=== PATIENT | female | born 1990 | race Caucasian/White ===

== ENCOUNTER 2016-11-06 17:44 | Emergency (ER) | payer SELFPAY | END 2016-11-06 17:45 | disposition left against medical advice (07) | LOC: ER 17:44 | DX: Z53.21 Procedure and treatment not carried out due to patient leaving prior to being seen by health care provider (principal) ==

== ENCOUNTER 2017-05-13 21:31 | Emergency (ER) | payer SELFPAY ==
--- NOTE | 2017-05-13 23:06 | RADIOLOGY REPORT (SQ) ---
EXAM DESCRIPTION: CHEST PA/LAT COMPLETED DATE/TIME: 05/13/2017 10:47 pm REASON FOR STUDY: rib pain COMPARISON: May 2016 EXAM PARAMETERS: NUMBER OF VIEWS: two views TECHNIQUE: Digital Frontal and Lateral radiographic views of the chest acquired. RADIATION DOSE: NA LIMITATIONS: none FINDINGS: LUNGS AND PLEURA: No opacities, masses or pneumothorax. No pleural effusion. MEDIASTINUM AND HILAR STRUCTURES: No masses or contour abnormalities. HEART AND VASCULAR STRUCTURES: Heart normal size. No evidence for failure. BONES: No acute findings. HARDWARE: None in the chest. OTHER: No other significant finding. IMPRESSION: NO SIGNIFICANT RADIOGRAPHIC FINDING IN THE CHEST. TECHNICAL DOCUMENTATION: JOB ID: [id number] [employer]- All Rights Reserved
[2017-05-13] MEDS ORDERED: IBUPROFEN 600 MG TABLET PO ONE (23:43)
--- NOTE | 2017-05-13 23:43 | ER Document Report ---
ED General - General Chief Complaint: Rib, chest pain Stated Complaint: RIB PAIN Time Seen by Provider: 05/13/17 23:41 Notes: The patient is a 27-year-old female, PMHx migraines, seizures, current smoker, who presents with 1 day of bilateral lateral chest wall pain that is worse when she coughs or presses on her chest wall. She has not had this in the past not taking anything to help. She denies hemoptysis, OCP use, recent travel, nausea , vomiting, shortness of breath, chest pain at rest, abdominal pain or urinary symptoms. TRAVEL OUTSIDE OF THE [place] IN LAST 30 DAYS: No - Related Data Allergies/Adverse Reactions: No Known Allergies Allergy (Verified 05/09/15 00:27) Past Medical History - General Information source: Patient - Social History Smoking Status: Current Every Day Smoker Family History: Reviewed & Not Pertinent Neurological Medical History: Reports: Hx Migraine, Hx Seizures Renal/ Medical History: Denies: Hx Peritoneal Dialysis Psychiatric Medical History: Reports: Hx Anxiety, Hx Depression Past Surgical History: Reports: Hx Section - x3 - Immunizations Immunizations up to date: Yes Hx Diphtheria, Pertussis, Tetanus Vaccination: Yes Review of Systems - Review of Systems Notes: REVIEW OF SYSTEMS: CONSTITUTIONAL: -fevers, -chills EENT: -eye pain, -difficulty swallowing, -nasal congestion CARDIOVASCULAR: +chest wall pain, -syncope. RESPIRATORY: +cough, -SOB GASTROINTESTINAL: -abdominal pain, - nausea, -vomiting, -diarrhea GENITOURINARY: -dysuria, -hematuria MUSCULOSKELETAL: -back pain, -neck pain SKIN: -rash or skin lesions. HEMATOLOGIC: -easy bruising or bleeding. LYMPHATIC: -swollen, enlarged glands. NEUROLOGICAL: -altered mental status or loss of consciousness, -headache, - neurologic symptoms PSYCHIATRIC: -anxiety, -depression. ALL OTHER SYSTEMS REVIEWED AND NEGATIVE. Physical Exam - Vital signs Vitals: Temp Pulse Resp BP Pulse Ox 98.8 F 104 H 20 117/79 100 05/13/17 23:07 05/13/17 23:07 05/13/17 23:07 05/13/17 23:07 05/13/17 23:07 - Notes Notes: PHYSICAL EXAMINATION: GENERAL: Well-appearing, well-nourished and in no acute distress. HEAD: Atraumatic, normocephalic. EYES: Pupils equal round and reactive to light, extraocular movements intact, sclera anicteric, conjunctiva are normal. ENT: nares patent, oropharynx clear without exudates. Moist mucous membranes. NECK: Normal range of motion, supple without lymphadenopathy LUNGS: Breath sounds clear to auscultation bilaterally and equal. No wheezes rales or rhonchi. HEART: Tachycardic CHEST WALL: Tenderness over B/L lateral chest wall, no step-offs ABDOMEN: Soft, nontender, normoactive bowel sounds. No guarding, no rebound. No masses appreciated. EXTREMITIES: Normal range of motion, no pitting or edema. No cyanosis. NEUROLOGICAL: Cranial nerves grossly intact. Normal speech, normal gait. Normal sensory and motor exams. PSYCH: Normal mood, normal affect. SKIN: Warm, Dry, normal turgor, no rashes or lesions noted. Course - Re-evaluation Re-evalutation: Patient appears well and is in no respiratory distress. Her chest x-ray does not show any rib fractures, pneumothorax or pneumonia and her EKG does not show any evidence of ischemia. She is mildly tachycardic that she says is from her pain when she coughs. She has no risk factors for PE at this time and does not have any shortness of breath. Will begin anti-inflammatories and provide smoking cessation counseling to the patient. Given strict return precautions and she understands. - Vital Signs Vital signs: Temp Pulse Resp BP Pulse Ox 99.9 F 100 20 115/80 99 05/14/17 00:15 05/13/17 23:54 05/13/17 23:54 05/13/17 23:54 05/13/17 23:54 - Diagnostic Test Radiology reviewed: Image reviewed, Reports reviewed Radiology results interpreted by me: CXR: NAD - EKG Interpretation by Me EKG shows normal: Sinus rhythm, [place], Intervals, QRS Complexes, ST-T Waves Rate: Tachycardia Discharge - Discharge Clinical Impression: Chest wall pain Condition: Stable Disposition: HOME, SELF-CARE Additional Instructions: CHEST PAIN OF UNCLEAR CAUSE: The exact cause of your chest pain isn't clear. Fortunately, there is no evidence of a dangerous medical condition. Further testing may be required to find the source of the pain. Most often, we find that this pain is coming from the chest wall -- the muscles or rib joints in the chest. But chest pain can come from the lung and lung lining, the esophagus, the heart valves or heart lining, and even the stomach or gallbladder. Rest. Eat lightly until the pain is gone. We may prescribe medicine for pain and inflammation. You should call the physician immediately if the pain radiates to the shoulder, jaw or arms; if you start to run a fever or develop a cough; or if you develop shortness of breath, or other new or alarming symptoms. NORMAL EXAM AND WORKUP: At this time, your examination and workup show no significant abnormality. No significant abnormal physical findings were noted. All laboratory, EKG, and imaging (x-ray, CT scans, ultrasound) studies that were ordered show no significant abnormality. Although your examination and all studies that were ordered showed no significant abnormal finding, there are no examinations and no studies that are 100% accurate. There is always the possibility that some abnormality could exist and not be detected with physical examination or within the limits and capabilities of laboratory and other studies. You should return or follow up as you were instructed on your visit today for further evaluation if your symptoms do not resolve. CHEST WALL PAIN: Your chest pain may be coming from the chest wall. This is often caused by straining the muscles or joints in the chest during physical activity, direct trauma, coughing, or vigorous vomiting. Persons with arthritis are especially prone to this type of pain, due to inflammation of the cartilage joints near the breast bone. Occasionally, no cause can be found. Rest from strenuous physical activity. This kind of chest pain is usually made worse by movement of the chest. Depending on the symptoms, we may prescribe medicine for pain, muscle relaxation, and antiinflammatory effects. If the pain is new, and seems to be due to muscle strain, cold packs can help. Otherwise, apply gentle warmth to the painful area for 15 minutes every hour or two. You should call contact the doctor immediately if things change. Further evaluation is needed if you develop a fever or cough, if the nature of the pain changes, or if you become short of breath. FOLLOW-UP CARE: If you have been referred to a physician for follow-up care, call the physician s office for an appointment as you were instructed or within the next two days. If you experience worsening or a significant change in your symptoms, notify the physician immediately or return to the Emergency Department at any time for re-evaluation. Forms: Smoking Cessation Education
[2017-05-14 00:01] VITALS: BP 115/80
--- NOTE | 2017-05-14 07:59 | EKG REPORT ---
SEVERITY:- BORDERLINE ECG - SINUS TACHYCARDIA BORDERLINE T ABNORMALITIES, INFERIOR LEADS : Confirmed by: Pool Ortiz MD 14-May-2017 07:58:46
== END 2017-05-14 01:18 | disposition home or self-care (01) ==
LOC: ER 21:31
DX: R07.89 Other chest pain (principal); R07.81 Pleurodynia; F17.200 Nicotine dependence, unspecified, uncomplicated
CPT/HCPCS: 71020; 93005; 93010; 99283

== ENCOUNTER 2017-05-15 19:39 | Emergency (ER) | payer SELFPAY ==
[2017-05-15 20:04] VITALS: BP 110/69
[2017-05-15] MEDS ORDERED: ONDANSETRON 4 MG TAB.RAPDIS PO ONE (20:33)
[2017-05-15] MEDS ORDERED: OXYCODONE-ACETAMINOPHEN 5-325 MG TABLET PO ONE (20:34)
--- NOTE | 2017-05-15 20:49 | ER Document Report ---
ED Medical Screen (RME) - General Chief Complaint: Abdominal Pain Stated Complaint: FLANK PAIN Time Seen by Provider: 05/15/17 20:27 Notes: patient is a female who presents to the ED stating she recently found out she was the past two days and last night had sudden onset of pelvic pain, urinary frequnecy, urgency, pain and hematuria only when she wipes , denies any vaginal spotting/bleeding. she has not seen an OBGYN regarding todays concern, denies US confirming . New to [place] so does not have an established PCP, OBGYN TRAVEL OUTSIDE OF THE [place]. IN LAST 30 DAYS: No - Related Data Allergies/Adverse Reactions: No Known Allergies Allergy (Verified 05/09/15 00:27) Past Medical History - Social History Drug Abuse: None Family history: Malignancy - BREAST CANCER IN GRANDMOTHER AND GREATGRANDMOTHER AND MOTHERS AUNT Neurological Medical History: Reports: Hx Migraine, Hx Seizures Renal/ Medical History: Denies: Hx Peritoneal Dialysis Psychiatric Medical History: Reports: Hx Anxiety, Hx Depression Past Surgical History: Reports: Hx Section - x3 - Immunizations Immunizations up to date: Yes Hx Diphtheria, Pertussis, Tetanus Vaccination: Yes Physical Exam - Vital signs Vitals: Temp Pulse Resp BP Pulse Ox 97.9 F 86 16 110/69 95 05/15/17 20:02 05/15/17 20:02 05/15/17 20:02 05/15/17 20:02 05/15/17 20:02 - General General appearance: Appears well, Alert In distress: None - Abdominal Inspection: Normal Distension: No distension Bowel sounds: Normal Tenderness: Nontender Organomegaly: No organomegaly Course - Vital Signs Vital signs: Temp Pulse Resp BP Pulse Ox 97.9 F 86 16 110/69 95 05/15/17 20:02 05/15/17 20:02 05/15/17 20:02 05/15/17 20:02 05/15/17 20:02
[2017-05-15 21:57] LABS: ABSOLUTE EOSINOPHILS # (AUTO) 0.1 10^3/uL (0.0-0.6); ABSOLUTE LYMPHOCYTES (AUTO) 1.8 10^3/uL (0.5-4.7); ABSOLUTE MONOCYTES (AUTO) 1.3 10^3/uL (0.1-1.4); ABSOLUTE NEUT (AUTO) 9.5 10^3/uL (1.7-8.2); BASOPHILS % (AUTO) 0.2 % (0-2); HEMATOCRIT 40.2 % (36.0-47.0); HEMOGLOBIN 13.7 g/dL (12.0-15.5); HGB HCT DIFFERENCE 0.9; LYMPHOCYTES % (AUTO) 14.4 % (13-45); MEAN CORPUSCULAR HEMOGLOBIN 31.5 pg (27.0-33.4); MEAN CORPUSCULAR HGB CONC 34.2 g/dL (32.0-36.0); MEAN CORPUSCULAR VOLUME 92 fl (80-97); RED BLOOD COUNT 4.36 10^6/uL (3.72-5.28); RED CELL DISTRIBUTION WIDTH 13.2 % (11.5-14.0); SEGMENTED NEUTROPHILS % (AUTO) 74.4 % (42-78); WHITE BLOOD COUNT 12.8 10^3/uL (4.0-10.5)
[2017-05-15 22:00] LABS: APPEARANCE,URINE SLIGHTLY-CLOUDY; BILIRUBIN,URINE NEGATIVE (NEGATIVE); GLUCOSE, URINE NEGATIVE (NEGATIVE); KETONES,URINE NEGATIVE (NEGATIVE); LEUKOCYTE ESTERASE,URINE SMALL (NEGATIVE); NITRITE,URINE NEGATIVE (NEGATIVE); PROTEIN,URINE NEGATIVE (NEGATIVE); URINE SPECIFIC GRAVITY 1.019; UROBILINOGEN,URINE NEGATIVE mg/dL (<2.0)
--- NOTE | 2017-05-15 22:13 | ER Document Report ---
ED GI/ - General Mode of Arrival: Ambulatory Information source: Patient TRAVEL OUTSIDE OF THE [place] IN LAST 30 DAYS: No - HPI Patient complains to provider of: Abdominal pain Onset: Other - Refer to HPI notes Similar symptoms previously: No Recently seen / treated by doctor: No <JAMILAH WANG - Last Filed: 05/16/17 05:48> <CARLOS ENRIQUEKRISTAL ANN - Last Filed: 05/16/17 05:56> - General Chief Complaint: Abdominal Pain Stated Complaint: FLANK PAIN Time Seen by Provider: 05/15/17 20:27 Notes: Patient is a 27 year old female presenting to the emergency department for right sided pain that radiates into her back. Patient states her pain is exacerbated with movement and deep breaths. Patient has also had some nausea and vomiting. Patient denies any urinary symptoms such as frequency or burning with urination however, patient's triage note states she did have frequency and burning with urination. Patient was evaluated on Saturday and had a normal x- ray. Patient states she found out she was 2 days ago. Patient does not have an established PCP or OBGYN since she is new to [facility]. Patient has no known drug allergies. (JAMILAH WANG) - Related Data Allergies/Adverse Reactions: No Known Allergies Allergy (Verified 05/09/15 00:27) Past Medical History - General Information source: Patient - Social History Smoking Status: Unknown if Ever Smoked Drug Abuse: None Family History: None Patient has suicidal ideation: No Patient has homicidal ideation: No Neurological Medical History: Reports: Hx Migraine, Hx Seizures Psychiatric Medical History: Reports: Hx Anxiety, Hx Depression Past Surgical History: Reports: Hx Section - x3 - Immunizations Immunizations up to date: Yes Hx Diphtheria, Pertussis, Tetanus Vaccination: Yes <JAMILAH WANG - Last Filed: 05/16/17 05:48> Review of Systems - Review of Systems Constitutional: No symptoms reported EENT: No symptoms reported Cardiovascular: No symptoms reported Respiratory: No symptoms reported Gastrointestinal: See HPI, Abdominal pain, Nausea, Vomiting Genitourinary: No symptoms reported Female Genitourinary: No symptoms reported Musculoskeletal: See HPI, Back pain Skin: No symptoms reported Hematologic/Lymphatic: No symptoms reported Neurological/Psychological: No symptoms reported -: Yes All other systems reviewed and negative <JAMILAH WANG - Last Filed: 05/16/17 05:48> Physical Exam - Vital signs Interpretation: Normal <JAMILAH WANG - Last Filed: 05/16/17 05:48> <KRISTAL MONACO - Last Filed: 05/16/17 05:56> - Vital signs Vitals: Temp Pulse Resp BP Pulse Ox 97.9 F 86 16 110/69 95 05/15/17 20:02 05/15/17 20:02 05/15/17 20:02 05/15/17 20:02 05/15/17 20:02 - Notes Notes: GENERAL: Alert, interacts well. No acute distress. HEAD: Normocephalic, atraumatic. EYES: Appear normal. Pupils equal, round, and reactive to light. ENT: Moist mucus membranes, tongue midline. NECK: Full range of motion. Supple. Trachea midline. LUNGS: Clear to auscultation bilaterally, no wheezes, rales, or rhonchi. No respiratory distress. Right lateral chest wall tenderness to palpation. HEART: Regular rate and rhythm. No murmurs, gallops, or rubs. ABDOMEN: Soft, non-tender. Non-distended. Normal bowel sounds. BACK: Right CVA tenderness to palpation. EXTREMITIES: Moves all 4 extremities spontaneously. Normal strength. No edema. NEUROLOGICAL: Alert and oriented x3. Normal speech. No focal neurological deficits. GSC 15. PSYCH: Normal affect, normal mood. SKIN: Warm, dry, normal turgor. No rashes or lesions noted. (JAMILAH WANG) Course - Laboratory Result Diagrams: 05/15/17 20:32 05/15/17 20:32 <JAMILAH WANG - Last Filed: 05/16/17 05:48> - Laboratory Result Diagrams: 05/15/17 20:32 05/15/17 20:32 <KRISTAL MONACO - Last Filed: 05/16/17 05:56> - Re-evaluation Re-evalutation: 05/16/17 Patient with UTI and urine. Also some chest wall tenderness to palpation is reproducible on the right. US discussed with radiologist and no acute findings. Patient will be started on Keflex. Urine culture sent. Follow-up with [facility] this week. Understands agrees with plan. Stable for discharge. (KRISTAL MONACO) - Vital Signs Vital signs: Temp Pulse Resp BP Pulse Ox 97.9 F 86 16 110/69 95 05/15/17 20:02 05/15/17 20:02 05/15/17 20:02 05/15/17 20:02 05/15/17 20:02 - Laboratory Laboratory results interpreted by me: 05/15/17 05/15/17 20:32 21:36 WBC 12.8 H Absolute Neutrophils 9.5 H Urine Blood SMALL H Ur Leukocyte Esterase SMALL H Discharge <JAMILAH WANG - Last Filed: 05/16/17 05:48> <KRISTAL MONACO - Last Filed: 05/16/17 05:56> - Discharge Clinical Impression: Chest wall pain UTI (urinary tract infection) Qualifiers: Urinary tract infection type: site unspecified Hematuria presence: without hematuria Qualified Code(s): N39.0 - Urinary tract infection, site not specified Condition: Stable Disposition: HOME, SELF-CARE Instructions: Urinary Tract Infection ([facility]) Additional Instructions: Please take Tylenol as needed for pain. Follow-up with your [facility] this week. Prescriptions: Cephalexin Monohydrate [Keflex 500 mg Capsule] 500 mg PO Q6H 10 Days capsule Referrals: EH LOVING MD [Primary Care Provider] - Follow up as needed Scribe Attestation: 05/16/17 05:56 I personally performed the services described in the documentation, reviewed and edited the documentation which was dictated to the scribe in my presence, and it accurately records my words and actions. (KRISTAL MONACO) Scribe Documentation - Scribe Written by Ashleigh:: Ashleigh Kerr 05/15/17 23:56 acting as scribe for :: Carlos Enrique <JAMILAH WANG - Last Filed: 05/16/17 05:48>
[2017-05-15 22:15] LABS: ALANINE AMINOTRANSFERASE 49 U/L (9-52); ALBUMIN 4.3 g/dL (3.5-5.0); ALKALINE PHOSPHATASE 80 U/L (38-126); ANION GAP 12 (5-19); ASPARTATE AMINO TRANSFERASE 23 U/L (14-36); BILIRUBIN,DIRECT 0.4 mg/dL (0.0-0.4); BILIRUBIN,TOTAL 0.5 mg/dL (0.2-1.3); BLOOD UREA NITROGEN 14 mg/dL (7-20); CALCIUM 9.9 mg/dL (8.4-10.2); CARBON DIOXIDE 25 mmol/L (22-30); CHLORIDE 103 mmol/L (98-107); CREATININE RESULT 0.69 mg/dL (0.52-1.25); GLUCOSE 100 mg/dL (75-110); LIPASE 29.7 U/L (23-300); POTASSIUM 4.6 mmol/L (3.6-5.0); SODIUM 139.6 mmol/L (137-145); TOTAL PROTEIN 7.5 g/dL (6.3-8.2)
[2017-05-15] MEDS ORDERED: CEFTRIAXONE 1 GM/D5W RTU 50 ML IV ONE (22:28)
[2017-05-15] MEDS ORDERED: CEFTRIAXONE INJ 1000 MG VIAL IM ONE (22:30)
[2017-05-15] MEDS ORDERED: LIDOCAINE 1% INJ-PF (10 MG/ML) 30 ML SDV INFIL ONE (22:30)
--- NOTE | 2017-05-17 16:22 | RADIOLOGY REPORT (SQ) ---
EXAM DESCRIPTION: U/S ABDOMEN LTD W/DOPPLER COMPLETED DATE/TIME: 05/15/2017 9:10 pm REASON FOR STUDY: RUQ pain, r/o GB disease COMPARISON: None. TECHNIQUE: Dynamic and static grayscale images acquired of the abdomen and recorded on PACS. Additio nal selected color Doppler and spectral images recorded. LIMITATIONS: None. FINDINGS: PANCREAS: No masses. Visualized pancreatic duct normal caliber. LIVER: No masses. Echotexture normal. LIVER VASCULATURE: Normal directional flow of the main portal vein and hepatic veins. GALLBLADDER: No stones. Normal wall thickness. No pericholecystic fluid. ULTRASOUND-DETECTED RAUSCH'S SIGN: Negative. INTRAHEPATIC DUCTS AND COMMON DUCT: CBD and intrahepatic ducts normal caliber. No filling defects. INFERIOR VENA CAVA: Normal flow. AORTA: No aneurysm. RIGHT KIDNEY: Normal size. Normal echogenicity. No solid or suspicious masses. No hydronephrosis. No calcifications. PERITONEAL AND RIGHT PLEURAL SPACE: No ascites or effusions. OTHER: No other significant findings. IMPRESSION: NORMAL RIGHT UPPER QUADRANT ULTRASOUND. TECHNICAL DOCUMENTATION: JOB ID: [id number]- All Rights Reserved
== END 2017-05-15 23:59 | disposition home or self-care (01) ==
LOC: ER 19:39
DX: R07.89 Other chest pain (principal); N39.0 Urinary tract infection, site not specified
CPT/HCPCS: 99284; 96372; 36415; 87086; 83690; 85025; 81025; 80053; 81001; 76705; 93976; S0119; J3490; J0696

== ENCOUNTER 2017-07-02 12:16 | Emergency (ER) | payer SELFPAY ==
--- NOTE | 2017-07-02 13:12 | ER Document Report ---
ED Medical Screen (RME) - General Chief Complaint: Vag Bleeding, +preg <12wks Stated Complaint: ABDOMINAL PAIN,VAGINAL BLEEDING Time Seen by Provider: 07/02/17 13:09 Notes: Patient has had a positive home test about 2 weeks ago when she started having vaginal bleeding and lower abdominal pain last night. Patient had a tubal ligation 6 years ago. G3, P3, A0. Patient says her mother says she is looked and patient has noticed her abdomen getting bigger. She has not had any bleeding or spotting until last night. She says it is heavy including clots. Patient says she had a regular menstrual period in March. She had no period in April. She had a one-day light. The first part of May and none since then. TRAVEL OUTSIDE OF THE [place]S. IN LAST 30 DAYS: No - Related Data Allergies/Adverse Reactions: No Known Allergies Allergy (Verified 07/02/17 12:20) Past Medical History - Social History Frequency of alcohol use: None Drug Abuse: None Family history: Malignancy - BREAST CANCER IN GRANDMOTHER AND GREATGRANDMOTHER AND MOTHERS AUNT Neurological Medical History: Reports: Hx Migraine, Hx Seizures Renal/ Medical History: Denies: Hx Peritoneal Dialysis Psychiatric Medical History: Reports: Hx Anxiety, Hx Depression Past Surgical History: Reports: Hx Section - x3 - Immunizations Immunizations up to date: Yes Hx Diphtheria, Pertussis, Tetanus Vaccination: Yes Physical Exam - Vital signs Vitals: Temp Pulse Resp BP Pulse Ox 97.8 F 82 24 H 112/69 98 07/02/17 12:22 07/02/17 12:22 07/02/17 12:22 07/02/17 12:22 07/02/17 12:22 Course - Vital Signs Vital signs: Temp Pulse Resp BP Pulse Ox 97.8 F 82 24 H 112/69 98 07/02/17 12:22 07/02/17 12:22 07/02/17 12:22 07/02/17 12:22 07/02/17 12:22
[2017-07-02 13:36] LABS: ABSOLUTE BASOPHILS # (AUTO) 0.1 10^3/uL (0.0-0.2); ABSOLUTE EOSINOPHILS # (AUTO) 0.2 10^3/uL (0.0-0.6); ABSOLUTE LYMPHOCYTES (AUTO) 2.6 10^3/uL (0.5-4.7); ABSOLUTE MONOCYTES (AUTO) 0.6 10^3/uL (0.1-1.4); ABSOLUTE NEUT (AUTO) 7.1 10^3/uL (1.7-8.2); BASOPHILS % (AUTO) 0.5 % (0-2); EOSINOPHILS % (AUTO) 1.7 % (0-6); HEMATOCRIT 41.5 % (36.0-47.0); HEMOGLOBIN 14.7 g/dL (12.0-15.5); HGB HCT DIFFERENCE 2.6; LYMPHOCYTES % (AUTO) 24.4 % (13-45); MEAN CORPUSCULAR HGB CONC 35.4 g/dL (32.0-36.0); MEAN CORPUSCULAR VOLUME 90 fl (80-97); MONOCYTES % (AUTO) 5.8 % (3-13); RED BLOOD COUNT 4.59 10^6/uL (3.72-5.28); RED CELL DISTRIBUTION WIDTH 13.6 % (11.5-14.0); SEGMENTED NEUTROPHILS % (AUTO) 67.6 % (42-78); WHITE BLOOD COUNT 10.5 10^3/uL (4.0-10.5)
--- NOTE | 2017-07-02 13:46 | ER Document Report ---
ED GI/ - General Chief Complaint: Vag Bleeding, +preg <12wks Stated Complaint: ABDOMINAL PAIN,VAGINAL BLEEDING Time Seen by Provider: 07/02/17 13:09 Mode of Arrival: Ambulatory Information source: Patient TRAVEL OUTSIDE OF THE [place] IN LAST 30 DAYS: No - HPI Patient complains to provider of: Pelvic pain, Vaginal bleeding Onset: Yesterday - LAST PM Timing/Duration: Sudden Quality of pain: Cramping Severity at maximum: Moderate Severity in ED: Moderate Context: - LIKELY Location: Pelvis Vaginal bleeding (Compared to normal period): Heavier Menstrual period history: Missed - APRIL & LMP: 04/01 : 3 Para: 3 Abortions: 0 Sexual history: Active Associated symptoms: Urinary frequency Exacerbated by: Denies Relieved by: Denies Similar symptoms previously: No Recently seen / treated by doctor: No - Related Data Allergies/Adverse Reactions: No Known Allergies Allergy (Verified 07/02/17 12:20) Past Medical History - General Information source: Patient - Social History Smoking Status: Current Every Day Smoker Frequency of alcohol use: None Drug Abuse: None Lives with: Family Family History: None Patient has suicidal ideation: No Patient has homicidal ideation: No - Past Medical History Cardiac Medical History: Reports: None Pulmonary Medical History: Reports: None EENT Medical History: Reports: None Neurological Medical History: Reports: Hx Migraine, Hx Seizures Endocrine Medical History: Reports: None Renal/ Medical History: Reports: None. Denies: Hx Peritoneal Dialysis Malignancy Medical History: Reports: None GI Medical History: Reports: None Musculoskeltal Medical History: Reports None Psychiatric Medical History: Reports: Hx Anxiety, Hx Depression Past Surgical History: Reports: Hx Section - x3, Hx Tubal Ligation - Immunizations Immunizations up to date: Yes Hx Diphtheria, Pertussis, Tetanus Vaccination: Yes Review of Systems - Review of Systems Constitutional: No symptoms reported EENT: No symptoms reported Cardiovascular: No symptoms reported Respiratory: No symptoms reported Gastrointestinal: No symptoms reported Genitourinary: See HPI Female Genitourinary: See HPI Musculoskeletal: No symptoms reported Skin: No symptoms reported Neurological/Psychological: No symptoms reported Physical Exam - Vital signs Vitals: Temp Pulse Resp BP Pulse Ox 97.8 F 82 24 H 112/69 98 07/02/17 12:22 07/02/17 12:22 07/02/17 12:22 07/02/17 12:22 07/02/17 12:22 Interpretation: Tachypneic. No: Hypotensive, Tachycardic - General General appearance: Appears well, Alert In distress: None - HEENT Head: Normocephalic Eyes: Normal Conjunctiva: Normal Ears: Normal Nasal: Normal Mouth/Lips: Normal Mucous membranes: Normal - Respiratory Respiratory status: No respiratory distress - Cardiovascular Rhythm: Regular - Abdominal Inspection: Normal - Genitourinary External exam: Normal Speculum exam: Normal, Cervix closed Vaginal bleeding: Mild - SMALL AMT. BLOODY MUCOID D/C [place] exam: Cervical motion tender - Back Back: Normal - Extremities General upper extremity: Normal inspection General lower extremity: Normal inspection - Neurological Neuro grossly intact: Yes Cognition: Normal Orientation: AAOx4 - Psychological Associated symptoms: Normal affect, Normal mood - Skin Skin Temperature: Warm Skin Moisture: Dry Skin Color: Normal Skin Turgor: Elastic Course - Vital Signs Vital signs: Temp Pulse Resp BP Pulse Ox 97.8 F 82 24 H 112/69 98 07/02/17 12:22 07/02/17 12:22 07/02/17 12:22 07/02/17 12:22 07/02/17 12:22 - Laboratory Result Diagrams: 07/02/17 13:22 Discharge - Discharge Clinical Impression: Pelvic pain, Cervicitis, Dysmenorrhea Condition: Stable Disposition: HOME, SELF-CARE Instructions: Dysmenorrhea ([facility]), Oral Narcotic Medication ([facility]), Cervicitis ( [facility]), Rocephin ([facility]), Azithromycin ([facility]) Additional Instructions: REST, DRINK PLENTY OF FLUIDS. YOU MAY TAKE NORCO IF NEEDED FOR PAIN, OR IBUPROFEN FOR LESS SEVERE PAIN. FOLLOW UP WITH YOUR PRIMARY CARE PROVIDER OR RETURN TO E.R. IF NOT IMPROVED IN 2 -3 DAYS, OR SOONER IF YOU GET WORSE, ANY TIME. Prescriptions: Hydrocodone/Acetaminophen [[place] 5-325 mg Tablet] 1 tab PO Q4HP PRN #7 tablet PRN Reason: For Pain
[2017-07-02] MEDS ORDERED: OXYCODONE-ACETAMINOPHEN 5-325 MG TABLET PO ONE (14:24)
[2017-07-02] MEDS ORDERED: HYDROCODONE/ACETAMINOPHEN 5-325 MG TABLET PO ONE (16:03)
--- NOTE | 2017-07-02 16:22 | RADIOLOGY REPORT (SQ) ---
EXAM DESCRIPTION: U/S NON OB PEL TV W/DOPPLER COMPLETED DATE/TIME: 07/02/2017 3:37 pm REASON FOR STUDY: LMP ?Kika, pos home preg test, vag bleed, pain COMPARISON: None. TECHNIQUE: Dynamic and static grayscale images acquired of the pelvis via transvaginal approach and recorded on PACS. Additional selected color Doppler and spectral images recorded. LIMITATIONS: None. FINDINGS: UTERUS: Contour normal. No mass. Uterine calcifications are present ENDOMETRIAL STRIPE: No focal or generalized thickening. No masses. CERVIX: Nabothian cysts. 2.7 cm. RIGHT OVARY: 2.7 x 2 x 1.6 cm RIGHT OVARY DOPPLER: Normal arterial vascular flow without evidence for torsion. LEFT OVARY: 3.2 x 2 x 2 cm. LEFT OVARY DOPPLER: Normal arterial vascular flow without evidence for torsion. FREE FLUID: None noted. OTHER: No other significant finding. MEASUREMENTS: UTERUS: 8.9 x 4 2 x 3 point cm ENDOMETRIAL STRIPE: 7 mm RIGHT OVARY: 2.7 x 2 x 1.6 cm LEFT OVARY: 3.2 x 2 x 2 cm IMPRESSION: There appear to be some small calcified uterine fibroids. The study is otherwise unrema rkable. TECHNICAL DOCUMENTATION: JOB ID: [id number]- All Rights Reserved
[2017-07-02] MEDS ORDERED: CEFTRIAXONE INJ 250 MG VIAL IV ONE (17:34)
[2017-07-02] MEDS ORDERED: AZITHROMYCIN 1 GM SUSP PACKET PO ONE (17:35)
[2017-07-02 18:15] VITALS: BP 116/74
[2017-07-02 19:13] LABS: CHLAM PCR DETECTED (NOT DETECT)
== END 2017-07-02 18:05 | disposition home or self-care (01) ==
LOC: ER 12:16
DX: N94.6 Dysmenorrhea, unspecified (principal); N72 Inflammatory disease of cervix uteri; R10.2 Pelvic and perineal pain; R35.0 Frequency of micturition; R06.82 Tachypnea, not elsewhere classified; F17.200 Nicotine dependence, unspecified, uncomplicated
CPT/HCPCS: 99284; 96365; 86900; 86901; 36415; 87210; 84702; 85025; 87491; 87591; 76830; 93976; Q0144; J0696

== ENCOUNTER 2018-01-14 20:51 | Emergency (ER) | payer SELFPAY ==
[2018-01-14] MEDS ORDERED: DIPH/PERTUSS(ACELL)/TETANUS VAC/PF 0.5 ML SYR (>=10YO) IM ONE (22:50)
[2018-01-14] MEDS ORDERED: ACETAMINOPHEN 325 MG TABLET PO ONE (23:26)
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
[2018-01-14 23:43] VITALS: BP 117/81
== END 2018-01-14 23:43 | disposition home or self-care (01) ==
LOC: ER 20:51
PROC: 0HQ0XZZ Repair Scalp Skin, External Approach (ICD-10-PCS; principal; 2018-01-14)
DX: S01.91XA Laceration without foreign body of unspecified part of head, initial encounter (principal); R51 Headache; W22.8XXA Striking against or struck by other objects, initial encounter
CPT/HCPCS: 90471; 90715; 99283

== ENCOUNTER 2018-03-23 14:56 | Emergency (ER) | payer SELFPAY ==
[2018-03-23 15:01] VITALS: BP 117/73
[2018-03-23] MEDS ORDERED: ACETAMINOPHEN 325 MG TABLET PO ONE (15:22)
[2018-03-23] MEDS ORDERED: IBUPROFEN 600 MG TABLET PO ONE (15:23)
--- NOTE | 2018-03-23 15:34 | ER Document Report ---
HPI - HPI Pain Level: 5 Notes: Patient is a 28-year-old female who presents to the ED complaining of left posterior shoulder pain with occasional sharp pain shooting into her left arm 4 days. Patient states that she woke up with no symptoms. Patient does not recall any injury or possible mechanism of action that resulted in her current symptoms. Patient states that she has not noticed any swelling, redness or bruising. She denies any drug allergies. Patient states that her posterior shoulder area will occasionally spasm on her and the worse areas are near her left scapula. No other concerns or complaints. Denies any IV drug use or drug allergies. Denies any headache, fever, head injury, neck pain, URI, sore throat , chest pain, palpitations, syncope, cough, shortness of breath, wheeze, dyspnea , abdominal pain, nausea/vomiting/diarrhea, urinary retention, dysuria, hematuria, loss of control of bowel or bladder, numbness/tingling, saddle anesthesia, muscle paralysis/weakness, or rash. - ROS Systems Reviewed and Negative: Yes All other systems reviewed and negative - REPRODUCTIVE Reproductive: DENIES: : Past Medical History - Social History Smoking Status: Unknown if Ever Smoked Family History: None Neurological Medical History: Reports: Hx Migraine, Hx Seizures Renal/ Medical History: Denies: Hx Peritoneal Dialysis Psychiatric Medical History: Reports: Hx Anxiety, Hx Depression Past Surgical History: Reports: Hx Section - x3, Hx Tubal Ligation - Immunizations Immunizations up to date: Yes Hx Diphtheria, Pertussis, Tetanus Vaccination: Yes Vertical Provider Document - CONSTITUTIONAL Agree With Documented VS: Yes Notes: PHYSICAL EXAMINATION: GENERAL: Well-appearing, well-nourished and in no acute distress. NECK: Normal range of motion, supple without lymphadenopathy. Non-tender. Spurling negative. No rigidity/meningismus. LUNGS: Breath sounds clear to auscultation bilaterally and equal. No wheezes rales or rhonchi. HEART: Regular rate and rhythm without murmurs, rubs, gallops. Musculoskeletal: Lt shoulder: FROM to passive. LROM to active due to pain. Strength 4+/5 due to pain. Neg impingement test. Neg speed test. No crepitus. No erythema or warmth. No deformity or ecchymosis. RC intact 5+/5 strength. + muscle spasming and trigger points noted to the soft tissue of the left lateral/inferior/medial trapezius mm which correlates with the pain described by the patient. N/V intact distal. No bony tenderness. Extremities: No cyanosis, clubbing, or edema b/l. Peripheral pulses 2+. Capillary refill less than 3 seconds. NEUROLOGICAL: Normal speech, normal gait. Normal sensory, motor exams PSYCH: Normal mood, normal affect. SKIN: Warm, Dry, normal turgor, no rashes or lesions noted. - INFECTION CONTROL TRAVEL OUTSIDE OF THE [place] IN LAST 30 DAYS: No Course - Re-evaluation Re-evalutation: 03/23/18 15:33 Patient is an afebrile, well-hydrated, 28-year-old female who presents to the ED with left trapezius muscle spasming and trigger points. Vitals are acceptable without any significant tachycardia, tachypnea, or hypoxia. PE is otherwise unremarkable for any neurovascular compromise, obvious tendon/ ligament rupture, obvious fracture/dislocation, septic joint. Patient has no other bony tenderness appreciated. No labs or imaging warranted at this time based on H&P. There are no signs of infection. Tylenol Motrin given p.o. today. Conservative measures for symptoms, but I will send her home with a prescription for naproxen and baclofen. Sling was provided for only temporary use and this was thoroughly reviewed with the patient that she needs to be stretching and using that arm routinely. Recheck with your PCM in 3-5 days. Consider consult orthopedics. Return to the ED with any worsening/concerning symptoms otherwise as reviewed in discharge. Patient is in agreement. - Vital Signs Vital signs: Temp Pulse Resp BP Pulse Ox 98.6 F 80 14 117/73 98 03/23/18 14:59 03/23/18 14:59 03/23/18 14:59 03/23/18 14:59 03/23/18 14:59 Discharge - Discharge Clinical Impression: Trapezius muscle spasm Condition: Stable Disposition: HOME, SELF-CARE Instructions: Muscle Relaxers ([facility]) Additional Instructions: Rest, Ice, Compression, Elevation Use sling as directed Tylenol/ibuprofen as needed Light stretches daily Strength exercises as able Moist heat and massage may help F/u with your PCP in 3-5 days for a recheck Consider consult(s) with Orthopedics/physical therapy for ongoing/worsening symptoms Return to the ED with any worsening symptoms and/or development of fever, headache, chest pain, palpitations, syncope, shortness of breath, trouble breathing, abdominal pain, n/v/d, muscle weakness/paralysis, numbness/tingling, swelling, redness, or other worsening symptoms that are concerning to you. Prescriptions: Baclofen [Baclofen 10 mg Tablet] 5 - 10 mg PO BID PRN #10 tablet PRN Reason: Naproxen 500 mg PO BID PRN #30 tablet PRN Reason: Referrals: [facility] ([facility]) [Provider Group] - Follow up as needed
== END 2018-03-23 15:53 | disposition home or self-care (01) ==
LOC: ER 14:56
DX: M62.830 Muscle spasm of back (principal); M25.512 Pain in left shoulder; M79.602 Pain in left arm
CPT/HCPCS: 99283

== ENCOUNTER 2018-08-16 22:31 | Emergency (ER) | payer SELFPAY ==
[2018-08-17] MEDS ORDERED: ACETAMINOPHEN 325 MG TABLET PO ONE (00:05)
--- NOTE | 2018-08-17 00:22 | ER Document Report ---
ED General - General Chief Complaint: Nausea/Vomiting Stated Complaint: HEADACHE Time Seen by Provider: 08/16/18 23:02 TRAVEL OUTSIDE OF THE [place] IN LAST 30 DAYS: No - HPI Patient complains to provider of: L[place]ER[place], cough, ear pain, vomiting Onset: This morning Notes: 28-year-old female past medical history of migraines, seizures, depression presents to the emergency department with complaints of headache, ear pain, cough that started today. She endorses subjective fevers and chills, fatigue, sinus pressure, earache bilaterally, and it hurts to breathe. She also endorses vomiting and nausea but denies diarrhea or constipation. She endorses pelvic pain no evidence of vaginal bleeding, and has pain with sex. - Related Data Allergies/Adverse Reactions: No Known Allergies Allergy (Verified 07/02/17 12:20) Past Medical History - General Information source: Patient - Social History Smoking Status: Current Every Day Smoker Family History: None Patient has suicidal ideation: No Patient has homicidal ideation: No Neurological Medical History: Reports: Hx Migraine, Hx Seizures Renal/ Medical History: Denies: Hx Peritoneal Dialysis Psychiatric Medical History: Reports: Hx Anxiety, Hx Depression Past Surgical History: Reports: Hx Section - x3, Hx Tubal Ligation - Immunizations Immunizations up to date: Yes Hx Diphtheria, Pertussis, Tetanus Vaccination: Yes Review of Systems - Review of Systems Constitutional: See HPI EENT: See HPI Cardiovascular: See HPI Respiratory: See HPI Gastrointestinal: See HPI Genitourinary: See HPI Female Genitourinary: No symptoms reported Musculoskeletal: No symptoms reported Skin: No symptoms reported Hematologic/Lymphatic: No symptoms reported Neurological/Psychological: No symptoms reported Physical Exam - Vital signs Vitals: Temp Pulse Resp BP Pulse Ox 97.8 F 62 14 115/77 96 08/16/18 22:37 08/16/18 22:37 08/16/18 22:37 08/16/18 22:37 08/16/18 22:37 Interpretation: Normal - General General appearance: Appears well, Alert In distress: None - HEENT Head: Normocephalic, Atraumatic Eyes: Normal Cornea: Normal Extraocular movements intact: Yes Pupils: PERRL Ears: Pinna tenderness External canal: Normal Tympanic membrane: Normal Sinus: Frontal - TTP Nasal: Normal Mouth/Lips: Normal Mucous membranes: Normal Pharynx: Normal Neck: Anterior cervical chain - Respiratory Respiratory status: No respiratory distress Chest status: Nontender Breath sounds: Normal Chest palpation: Normal - Cardiovascular Rhythm: Regular Heart sounds: Normal auscultation Murmur: No - Abdominal Inspection: Normal Distension: No distension Bowel sounds: Normal Tenderness: Tender - Tender to palpation left lower quadrant. Mass noted in left lower quadrant. Organomegaly: No organomegaly - Genitourinary External exam: Normal Speculum exam: Normal, Cervix closed Vaginal bleeding: None Bimanuel exam: Adnexal mass - R side, Adnexal tenderness - Back Back: Normal, Nontender. No: CVA tenderness - Extremities General upper extremity: Normal inspection, Nontender, Normal color, Normal ROM , Normal temperature General lower extremity: Normal inspection, Nontender, Normal color, Normal ROM , Normal temperature, Normal weight bearing. No: David's sign - Neurological Neuro grossly intact: Yes Cognition: Normal Orientation: AAOx4 [place] Coma Scale Eye Opening: Spontaneous [place] Coma Scale Verbal: Oriented [place] Coma Scale Motor: Obeys Commands [place] Coma Scale Total: 15 Speech: Normal Motor strength normal: LUE, RUE, LLE, RLE Sensory: Normal - Psychological Associated symptoms: Normal affect, Normal mood - Skin Skin Temperature: Warm Skin Moisture: Dry Skin Color: Normal Course - Re-evaluation Re-evalutation: 08/17/18 00:22 [address] with patient with Dr. Madrigal. Due to pelvic pain and pain with intercourse pelvic exam warranted. PA student Uriah form pelvic exam. Cervical office was closed, no vaginal discharge, no bleeding, tenderness on bimanual exam worse on right side, palpable mass noted. Specimens collected and sent to lab. 08/17/18 01:08 Wet prep returned positive for bacterial vaginosis. Giving Flagyl 500 mg p.o. x1 now and will give a prescription for 500 mg twice a day for 7 days. GC chlamydia prep still pending. 08/17/18 01:15 Discussed with patient that wet prep was positive for bacterial vaginosis. Explained to her that we are going to give her 1 dose of Flagyl with a prescription for a 1 week course. I also inquired if she was concerned that she may have had any exposures to STIs and she denied. Thus we will wait for the results of the GC chlamydia swab and not treat empirically. She was comfortable with this decision and that was her preference. Plan is to discharge patient with results of GC chlamydia pending if results do indeed come back positive I made patient aware that she must return for treatment or an IM injection she was agreeable to that. 08/17/18 01:23 - Vital Signs Vital signs: Temp Pulse Resp BP Pulse Ox 97.8 F 62 14 115/77 96 08/16/18 22:37 08/16/18 22:37 08/16/18 22:37 08/16/18 22:37 08/16/18 22:37 Discharge - Discharge Clinical Impression: Bacterial vaginosis Headache Qualifiers: Headache type: unspecified Headache chronicity pattern: acute headache Intractability: not intractable Qualified Code(s): R51 - Headache Condition: Good Disposition: HOME, SELF-CARE Instructions: Vaginosis, Bacterial ([facility]), Metronidazole ([facility]) Prescriptions: Metronidazole [Flagyl 500 mg Tablet] 500 mg PO BID #14 tablet
[2018-08-17] MEDS ORDERED: IBUPROFEN 600 MG TABLET PO ONE (00:24)
[2018-08-17 00:55] LABS: T.VAGINALIS (WET MOUNT) NO TRICHOMONAS SEEN; YEAST (WET MOUNT) NO YEAST SEEN
[2018-08-17 00:56] LABS: BACTERIA (WET MOUNT) 4+ BACTERIA SEEN; EPITHELIALS (WET MOUNT) 4+ EPITHELIALS SEEN; WBCS (WET MOUNT) 1+ WBCS SEEN
[2018-08-17] MEDS ORDERED: METRONIDAZOLE 500 MG TABLET PO ONE (01:05)
[2018-08-17 01:28] VITALS: BP 115/71
[2018-08-17 02:14] LABS: CHLAM PCR NOT DETECTED (NOT DETECT); GON PCR NOT DETECTED (NOT DETECT)
== END 2018-08-17 01:28 | disposition home or self-care (01) ==
LOC: ER 22:31
DX: N76.0 Acute vaginitis (principal); B96.89 Other specified bacterial agents as the cause of diseases classified elsewhere; R11.2 Nausea with vomiting, unspecified; R51 Headache; H92.09 Otalgia, unspecified ear; F17.200 Nicotine dependence, unspecified, uncomplicated; Z98.51 Tubal ligation status
CPT/HCPCS: 87210; 87491; 87591; 99283

== ENCOUNTER 2018-08-18 19:06 | Emergency (ER) | payer SELFPAY ==
--- NOTE | 2018-08-18 20:15 | ER Document Report ---
ED General - General Chief Complaint: Abdominal Pain Stated Complaint: ABDOMINAL PAIN Time Seen by Provider: 08/18/18 20:05 TRAVEL OUTSIDE OF THE [place] IN LAST 30 DAYS: No - HPI Patient complains to provider of: Abdominal pain Notes: Patient coming in for bilateral adnexal pain ongoing for greater than 48 hours. Patient was seen approximate 48 hours ago with a pelvic exam performed with signs of bacterial vaginosis patient has been on Flagyl patient states she was told pain continue to worsen come to the ER for further evaluation. Patient states pain has continued therefore came back in the ER for further evaluation. Patient denies any fever chills nausea vomiting diarrhea. Patient otherwise resting comfortably upon my evaluation. - Related Data Allergies/Adverse Reactions: No Known Allergies Allergy (Verified 07/02/17 12:20) Past Medical History - Social History Smoking Status: Unknown if Ever Smoked Family History: None Neurological Medical History: Reports: Hx Migraine, Hx Seizures Renal/ Medical History: Denies: Hx Peritoneal Dialysis Psychiatric Medical History: Reports: Hx Anxiety, Hx Depression Past Surgical History: Reports: Hx Section - x3, Hx Tubal Ligation - Immunizations Immunizations up to date: Yes Hx Diphtheria, Pertussis, Tetanus Vaccination: Yes Review of Systems - Review of Systems Constitutional: No symptoms reported EENT: No symptoms reported Cardiovascular: No symptoms reported Respiratory: No symptoms reported Gastrointestinal: Abdominal pain Genitourinary: No symptoms reported Female Genitourinary: No symptoms reported Musculoskeletal: No symptoms reported Skin: No symptoms reported Hematologic/Lymphatic: No symptoms reported Neurological/Psychological: No symptoms reported -: Yes All other systems reviewed and negative Physical Exam - Vital signs Vitals: Temp Pulse Resp BP Pulse Ox 98.0 F 87 20 126/86 H 98 08/18/18 19:25 08/18/18 19:25 08/18/18 19:25 08/18/18 19:25 08/18/18 19:25 Interpretation: Normal - General General appearance: Appears well, Alert - HEENT Head: Normocephalic, Atraumatic Eyes: Normal Pupils: PERRL - Respiratory Respiratory status: No respiratory distress Chest status: Nontender Breath sounds: Normal Chest palpation: Normal - Cardiovascular Rhythm: Regular Heart sounds: Normal auscultation Murmur: No - Abdominal Inspection: Normal Distension: No distension Bowel sounds: Normal Tenderness: Nontender Organomegaly: No organomegaly - Back Back: Normal, Nontender - Extremities General upper extremity: Normal inspection, Nontender, Normal color, Normal ROM , Normal temperature General lower extremity: Normal inspection, Nontender, Normal color, Normal ROM , Normal temperature, Normal weight bearing. No: David's sign - Neurological Neuro grossly intact: Yes Cognition: Normal Orientation: AAOx4 [place] Coma Scale Eye Opening: Spontaneous [place] Coma Scale Verbal: Oriented [place] Coma Scale Motor: Obeys Commands [place] Coma Scale Total: 15 Speech: Normal Motor strength normal: LUE, RUE, LLE, RLE Sensory: Normal - Psychological Associated symptoms: Normal affect, Normal mood - Skin Skin Temperature: Warm Skin Moisture: Dry Skin Color: Normal Course - Re-evaluation Re-evalutation: 08/18/18 23:34 Ultrasounds negative for any signs of tubo-ovarian abscess or ovarian torsion fibroids or any other critical pathology. Patient's laboratory studies also did not reveal any critical pathology. At this time I have very low suspicion for any infectious process going on. Recommend patient take Bentyl Tylenol Motrin for pain. We did retest for gonorrhea chlamydia however this results are pending at this time - Vital Signs Vital signs: Temp Pulse Resp BP Pulse Ox 98.4 F 64 16 110/76 99 08/18/18 22:22 08/18/18 22:22 08/18/18 22:22 08/18/18 22:22 08/18/18 22:22 - Laboratory Result Diagrams: 08/18/18 20:25 08/18/18 20:25 Laboratory results interpreted by me: 08/18/18 20:25 AST 13 L Discharge - Discharge Clinical Impression: Abdominal pain Qualifiers: Abdominal location: lower abdomen, unspecified Qualified Code(s): R10.30 - Lower abdominal pain, unspecified Condition: Good Disposition: HOME, SELF-CARE Instructions: Abdominal Pain ([facility]) Additional Instructions: Ultrasound tonight does not show any significant pathology. Your laboratory studies also did not show any signs of infection. I highly recommend taking Tylenol Motrin as prescribed along with Bentyl for abdominal pain. Follow-up with your primary care physician return to ER symptoms worsen. Prescriptions: Ibuprofen [Motrin 600 mg Tablet] 600 mg PO Q8HP PRN #21 tablet PRN Reason: Dicyclomine HCl [Bentyl 20 mg Tablet] 20 mg PO QID #30 tablet Forms: Return to Work
[2018-08-18 20:42] LABS: APPEARANCE,URINE CLEAR; BILIRUBIN,URINE NEGATIVE (NEGATIVE); COLOR,URINE YELLOW; GLUCOSE, URINE NEGATIVE (NEGATIVE); KETONES,URINE NEGATIVE (NEGATIVE); LEUKOCYTE ESTERASE,URINE NEGATIVE (NEGATIVE); NITRITE,URINE NEGATIVE (NEGATIVE); PROTEIN,URINE NEGATIVE (NEGATIVE); URINE SPECIFIC GRAVITY 1.009; UROBILINOGEN,URINE NEGATIVE mg/dL (<2.0)
[2018-08-18 20:44] LABS: ABSOLUTE BASOPHILS # (AUTO) 0.1 10^3/uL (0.0-0.2); ABSOLUTE EOSINOPHILS # (AUTO) 0.2 10^3/uL (0.0-0.6); ABSOLUTE LYMPHOCYTES (AUTO) 2.7 10^3/uL (0.5-4.7); ABSOLUTE MONOCYTES (AUTO) 0.6 10^3/uL (0.1-1.4); ABSOLUTE NEUT (AUTO) 6.7 10^3/uL (1.7-8.2); BASOPHILS % (AUTO) 0.5 % (0-2); EOSINOPHILS % (AUTO) 1.7 % (0-6); HEMATOCRIT 40.2 % (36.0-47.0); LYMPHOCYTES % (AUTO) 26.8 % (13-45); MEAN CORPUSCULAR HEMOGLOBIN 31.8 pg (27.0-33.4); MEAN CORPUSCULAR HGB CONC 34.7 g/dL (32.0-36.0); MEAN CORPUSCULAR VOLUME 92 fl (80-97); MONOCYTES % (AUTO) 5.7 % (3-13); PLATELET COUNT 327 10^3/uL (150-450); RED BLOOD COUNT 4.38 10^6/uL (3.72-5.28); RED CELL DISTRIBUTION WIDTH 13.2 % (11.5-14.0); SEGMENTED NEUTROPHILS % (AUTO) 65.3 % (42-78); TOTAL CELLS COUNTED % (AUTO) 100 %; WHITE BLOOD COUNT 10.2 10^3/uL (4.0-10.5)
[2018-08-18] MEDS ORDERED: ACETAMINOPHEN 325 MG TABLET PO ONE (20:50)
[2018-08-18] MEDS ORDERED: DICYCLOMINE HCL 20 MG TABLET PO ONE (20:50)
[2018-08-18 21:01] LABS: ALANINE AMINOTRANSFERASE 13 U/L (9-52); ALBUMIN 4.2 g/dL (3.5-5.0); ALKALINE PHOSPHATASE 55 U/L (38-126); ANION GAP 11 (5-19); ASPARTATE AMINO TRANSFERASE 13 U/L (14-36); BILIRUBIN,DIRECT 0.2 mg/dL (0.0-0.4); BILIRUBIN,TOTAL 0.2 mg/dL (0.2-1.3); BLOOD UREA NITROGEN 11 mg/dL (7-20); CALCIUM 9.5 mg/dL (8.4-10.2); CARBON DIOXIDE 24 mmol/L (22-30); CHLORIDE 105 mmol/L (98-107); GLUCOSE 109 mg/dL (75-110); TOTAL PROTEIN 6.9 g/dL (6.3-8.2)
--- NOTE | 2018-08-18 21:43 | RADIOLOGY REPORT (SQ) ---
EXAM DESCRIPTION: US PELVIS COMPLETED DATE/TME: 08/18/2018 20:30 CLINICAL HISTORY: 28 years, Female, lower abd pain Findings: Uterus is anteverted and measures 8.4 x 3.6 x 4.8 cm. Endometrium measures 7 mm in thickness. Right ovary measures 2.4 x 2.0 x 2.9 cm. Left ovary measures 3.7 x 2.4 x 2.3 cm. Vascularity preserved within both ovaries on color and spectral Doppler imaging. No abnormal adnexal masses noted. No significant free fluid in cul-de-sac. IMPRESSION: No suspicious findings.
[2018-08-18 22:13] LABS: CHLAM PCR NOT DETECTED (NOT DETECT); GON PCR NOT DETECTED (NOT DETECT)
[2018-08-18 22:24] VITALS: BP 110/76
== END 2018-08-18 22:26 | disposition home or self-care (01) ==
LOC: ER 19:06
DX: R10.30 Lower abdominal pain, unspecified (principal)
CPT/HCPCS: 99284; 36415; 85025; 81025; 80053; 81001; 87491; 87591; 76856; 93976; J3490

== ENCOUNTER 2018-09-24 18:34 | Emergency (ER) | payer SELFPAY ==
--- NOTE | 2018-09-24 21:03 | RADIOLOGY REPORT (SQ) ---
EXAM DESCRIPTION: CHEST 2 VIEWS COMPLETED DATE/TIME: 09/24/2018 8:49 pm REASON FOR STUDY: cough COMPARISON: 05/13/2017 and earlier EXAM PARAMETERS: NUMBER OF VIEWS: two views TECHNIQUE: Digital Frontal and Lateral radiographic views of the chest acquired. RADIATION DOSE: NA LIMITATIONS: none FINDINGS: LUNGS AND PLEURA: No opacities, masses or pneumothorax. No pleural effusion. MEDIASTINUM AND HILAR STRUCTURES: No masses or contour abnormalities. HEART AND VASCULAR STRUCTURES: Heart normal size. No evidence for failure. BONES: No acute findings. HARDWARE: None in the chest. OTHER: No other significant finding. IMPRESSION: NO ACUTE RADIOGRAPHIC FINDING IN THE CHEST. TECHNICAL DOCUMENTATION: JOB ID: [id number] [employer]- All Rights Reserved Reading location - IP/workstation name: [email or web address]
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
[2018-09-24 22:04] VITALS: BP 109/77
== END 2018-09-24 22:04 | disposition home or self-care (01) ==
LOC: ER 18:34
DX: J06.9 Acute upper respiratory infection, unspecified (principal); R06.02 Shortness of breath; R51 Headache; F17.210 Nicotine dependence, cigarettes, uncomplicated; Z98.51 Tubal ligation status
CPT/HCPCS: 71046; 99283

== ENCOUNTER 2018-10-18 22:38 | Emergency (ER) | payer SELFPAY ==
[2018-10-18 22:58] VITALS: BP 119/78
[2018-10-19 00:18] LABS: A TYPE INFLUENZA AG NEGATIVE (NEGATIVE)
[2018-10-19 00:19] LABS: B INFLUENZA AG NEGATIVE (NEGATIVE)
--- NOTE | 2018-10-19 00:33 | RADIOLOGY REPORT (SQ) ---
EXAM DESCRIPTION: XR CHEST 2 VIEWS COMPLETED DATE/TME: 10/18/2018 23:41 CLINICAL HISTORY: 28 years Female, cough COMPARISON: None. NUMBER OF VIEWS/TECHNIQUE: 2, Frontal, Lateral FINDINGS: Adequate lung volume, clear parenchyma, normal cardiac silhouette, and intact bony thorax. IMPRESSION: No acute cardiopulmonary findings.
[2018-10-19] MEDS ORDERED: BENZONATATE 100 MG CAPSULE PO ONE (01:17)
[2018-10-19] MEDS ORDERED: DEXAMETHASONE 4 MG TABLET PO ONE (01:17)
[2018-10-19] MEDS ORDERED: ALBUTEROL SULFATE HFA (90 MCG/PUFF) 200 PUFF/8.5 GM MDI IH ONE (01:17)
--- NOTE | 2018-10-19 01:19 | ER Document Report ---
ED General - General Chief Complaint: Cold Symptoms Stated Complaint: COUGH,SORE THROAT Time Seen by Provider: 10/18/18 23:40 Notes: Patient is a 28-year-old female with a past history of anxiety, depression, current everyday tobacco use who presents with 3 months of persistent cough. Patient reports that this is a nagging, constant daily cough with intermittent production of clear sputum. Has not seen on several occasions in regards to t his and diagnosed with an upper respiratory infection. No treatment has been provided by the patient's report. Nothing seems to improve her symptoms. She has not tried anything for relief of her symptoms. Denies a history of similar symptoms in the past. She denies any shortness of breath, fever or constitutional symptoms. Does note some associated nasal congestion. Her son is here today with similar symptoms. TRAVEL OUTSIDE OF THE [place] IN LAST 30 DAYS: No - Related Data Allergies/Adverse Reactions: No Known Allergies Allergy (Verified 09/24/18 18:36) Past Medical History - General Information source: Patient - Social History Smoking Status: Current Every Day Smoker Cigarette use (# per day): Yes - Half pack per day Smoking Education Provided: Yes - Smoking cessation counseling was provided for 4 minutes at the bedside Frequency of alcohol use: None Drug Abuse: None Lives with: Family Family History: Reviewed & Not Pertinent Neurological Medical History: Reports: Hx Migraine, Hx Seizures Renal/ Medical History: Denies: Hx Peritoneal Dialysis Psychiatric Medical History: Reports: Hx Anxiety, Hx Depression Past Surgical History: Reports: Hx Section - x3, Hx Tubal Ligation - Immunizations Immunizations up to date: Yes Hx Diphtheria, Pertussis, Tetanus Vaccination: Yes Review of Systems - Review of Systems Notes: Constitutional: Negative for fever. HENT: Negative for sore throat. Eyes: Negative for visual changes. Cardiovascular: Negative for chest pain. Respiratory: Positive for persistent cough Gastrointestinal: Negative for abdominal pain, vomiting or diarrhea. Genitourinary: Negative for dysuria. Musculoskeletal: Negative for back pain. Skin: Negative for rash. Neurological: Negative for headaches, weakness or numbness. 10 point ROS negative except as marked above and in HPI. Physical Exam - Vital signs Vitals: Temp Pulse Resp BP Pulse Ox 98.0 F 75 18 119/78 98 10/18/18 22:54 10/18/18 22:54 10/18/18 22:54 10/18/18 22:54 10/18/18 22:54 Interpretation: Normal Notes: PHYSICAL EXAMINATION: GENERAL: Well-appearing, well-nourished and in no acute distress. HEAD: Atraumatic, normocephalic. EYES: Pupils equal round and reactive to light, extraocular movements intact, sclera anicteric, conjunctiva are normal. ENT: nares patent, oropharynx clear without exudates. Moist mucous membranes. NECK: Normal range of motion, supple without lymphadenopathy LUNGS: Breath sounds clear to auscultation bilaterally and equal. No wheezes rales or rhonchi. HEART: Regular rate and rhythm without murmurs ABDOMEN: Soft, nontender, normoactive bowel sounds. No guarding, no rebound. No masses appreciated. EXTREMITIES: Normal range of motion, no pitting or edema. No cyanosis. NEUROLOGICAL: No focal neurological deficits. Moves all extremities spontaneously and on command. PSYCH: Normal mood, normal affect. SKIN: Warm, Dry, normal turgor, no rashes or lesions noted. Course - Re-evaluation Re-evalutation: 10/19/18 01:17 Patient presents with a clinical history and exam most consistent with an acute on chronic viral bronchitis. Patient is overall well in appearance without tachypnea, hypoxemia, tachycardia, or difficulty with ambulation. Breath sounds are clear bilaterally. No fever. Patient does have additional signs of upper respiratory infection including nasal congestion, sore throat, and sinus pressure. Chest x-ray and rapid flu negative. Will treat with bronchodilators, single dose of dexamethasone, and Tessalon Perles. At this time will discharge with return precautions and follow-up recommendations. Verbal discharge instructions given a the bedside and opportunity for questions given. Medication warnings reviewed. Patient is in agreement with this plan and has verbalized understanding of return precautions and the need for primary care follow-up in the next 24-72 hours. - Vital Signs Vital signs: Temp Pulse Resp BP Pulse Ox 98.0 F 75 18 119/78 98 10/18/18 22:54 10/18/18 22:54 10/18/18 22:54 10/18/18 22:54 10/18/18 22:54 - Diagnostic Test Radiology reviewed: Image reviewed, Reports reviewed Radiology results interpreted by me: 10/19/18 01:18 Chest x-ray: No acute infiltrate or pneumothorax Discharge - Discharge Clinical Impression: Bronchitis, Tobacco abuse, Persistent cough Condition: Good Disposition: HOME, SELF-CARE Additional Instructions: You were seen for symptoms most consistent with bronchitis. This can take up to 12 weeks to fully resolve. This is generally due to a viral infection. Please follow-up with your primary doctor in the next 2-3 days. Return if you develop worsening cough, vomiting, fever >100.4, pass out, begin coughing blood, or have any other symptoms that are concerning to you. Please use the medications prescribed today as directed. Prescriptions: Benzonatate [Tessalon Perles 100 mg Capsule] 100 mg PO Q8HP PRN #40 capsule PRN Reason:
== END 2018-10-19 01:27 | disposition home or self-care (01) ==
LOC: ER 22:38
DX: J40 Bronchitis, not specified as acute or chronic (principal); R05 Cough; J02.9 Acute pharyngitis, unspecified; R09.81 Nasal congestion; F17.210 Nicotine dependence, cigarettes, uncomplicated
CPT/HCPCS: 99406; 99283; 87804; 71046; J3490

== ENCOUNTER 2019-01-13 10:05 | Emergency (ER) | payer SELFPAY ==
[2019-01-13 10:17] VITALS: BP 127/88
[2019-01-13] MEDS ORDERED: IBUPROFEN 600 MG TABLET PO ONE (10:33)
--- NOTE | 2019-01-13 10:36 | ER Document Report ---
ED General - General Chief Complaint: Breast Problem Stated Complaint: BREAST PROBLEM Time Seen by Provider: 01/13/19 10:26 Mode of Arrival: Ambulatory Information source: Patient TRAVEL OUTSIDE OF THE [place] IN LAST 30 DAYS: No - HPI Patient complains to provider of: Left knee pain, left breast pain Onset: Other - 2 weeks Notes: Patient here with complaints of left knee pain for the last 2 weeks. She states the pain is been fairly constant, is located in the left lateral aspect of the knee, seems to be worse with ambulation. She denies any traumatic injury. She denies any swelling or redness. No fever. No numbness, tingling, weakness. She denies any chest pain or shortness of breath. No abdominal pain. No nausea, vomiting, diarrhea. She also reports that she has had some pain in her left breast for the last few weeks, she noticed some clear drainage coming from her left nipple. She denies any injury to this area. She denies any redness or swelling to the skin of the breast. She has had similar symptoms in the past approximately 2 years ago. She was instructed to have a mammogram done as an outpatient, unfortunately the patient does not have insurance and was never able to have this followed up. No other specific complaints at this time. - Related Data Allergies/Adverse Reactions: No Known Allergies Allergy (Verified 01/13/19 10:10) Past Medical History - Social History Smoking Status: Current Every Day Smoker Family History: Reviewed & Not Pertinent Patient has suicidal ideation: No Patient has homicidal ideation: No Neurological Medical History: Reports: Hx Migraine, Hx Seizures Renal/ Medical History: Denies: Hx Peritoneal Dialysis Psychiatric Medical History: Reports: Hx Anxiety, Hx Depression Past Surgical History: Reports: Hx Section - x3, Hx Tubal Ligation - Immunizations Immunizations up to date: Yes Hx Diphtheria, Pertussis, Tetanus Vaccination: Yes Review of Systems - Review of Systems -: Yes All other systems reviewed and negative Physical Exam - Vital signs Vitals: Temp Pulse Resp BP Pulse Ox 97.8 F 79 18 127/88 H 98 01/13/19 10:15 01/13/19 10:15 01/13/19 10:15 01/13/19 10:15 01/13/19 10:15 - Notes Notes: GENERAL: alert, cooperative, nontoxic, no distress. HEAD: normocephalic, atraumatic EYES: conjunctiva pink without discharge, no external redness or swelling. EARS: no external swelling, no external redness NOSE: atraumatic, no external swelling MOUTH/THROAT: mucous membranes moist and pink NECK: soft, supple, full range of motion, no meningismus. CHEST: no distress, lungs clear and equal throughout. No wheezing, rales, rhonchi. Breast exam performed with female early childhood director at the bedside. The breasts are symmetric. There is no obvious swelling. I do not appreciate any mass on breast exam, but there is tenderness to palpation to the left upper outer quadrant of the breast. No nipple drainage. There is no skin redness. No abscess. CARDIAC: regular rate and rhythm, no murmur, normal capillary refill, normal pulses. BACK: full range of motion, no CVA tenderness. EXTREMITIES: full range of motion of all extremities. No redness, no swelling. Tenderness to palpation of the lateral aspect of the left knee. No ligament instability. Anterior posterior drawer are normal. Normal straight leg raise. Normal pulse and sensation. NEURO: alert and oriented 3, no focal deficits, full range of motion of all extremities. PYSCH: appropriate mood, affect. Patient is cooperative. SKIN: pink, warm, dry, no rash. Course - Re-evaluation Re-evalutation: 01/13/19 11:27 Patient is nontoxic-appearing with stable vitals. Patient arrives with 2 complaints. One is left knee pain for the last few weeks. No injury. She has some lateral tenderness. No ligament instability. There is no redness, heat to touch, fever or signs of infection. Neurovascular she is intact. She had an Lenard wrap applied for comfort. X-ray of the knee shows no acute abnormality. Is also complaining of some left breast tenderness and a possible mass in the left upper outer quadrant. I was unable to palpate any specific mass. There is no skin redness or signs of abscess or infection. She reports that she had some discharge from her nipple as well. Patient unfortunately does not have insurance, therefore she has had difficulty getting this evaluated in the past. She states that she noticed this similar problem a few years ago. There will be a free breast exam with clinic going on here at [place] on January 31. I have given her the information regarding this as well as the phone number to call to get signed up to have this done. At this free exam, if the mammogram is needed, they will facilitate getting that set up. Patient will also be given a referral to the [facility]. She will be discharged home with a prescription for Naprosyn with instructions to rest, ice, elevate her knee. Follow-up if not better in 1 week. The patient's emergency department workup and current diagnosis were explained to the patient and or family. Follow-up instructions were provided. Medications if prescribed were discussed. Instructions for when to return to the emergency department including specific worrisome symptoms were discussed with the patient and/or family. - Vital Signs Vital signs: Temp Pulse Resp BP Pulse Ox 97.8 F 79 18 127/88 H 98 01/13/19 10:15 01/13/19 10:15 01/13/19 10:15 01/13/19 10:15 01/13/19 10:15 - Diagnostic Test Radiology reviewed: Image reviewed, Reports reviewed - Negative left knee Procedures - Immobilization Left knee Pre-Proc Neuro Vasc Exam: Normal Immobilizer type: Lenard wrap Performed by: RN Post-Proc Neuro Vasc Exam: Normal, Unchanged from pre-exam Alignment checked and good: Yes Discharge - Discharge Clinical Impression: Breast pain, left Left knee pain Qualifiers: Chronicity: acute Qualified Code(s): M25.562 - Pain in left knee Condition: Stable Disposition: HOME, SELF-CARE Instructions: Sprained Knee ([facility]), Breast Discharge ([facility]), Breast Lumps ([facility]), Breast Self-Examination ([facility]) Additional Instructions: Take medication as prescribed. Wear Lenard wrap as needed for comfort. Rest, ice, elevate. Follow-up with the [facility] clinic if her knee continues to hurt in 1 week. Follow-up sooner for worsening pain, fever, redness, any further concerns. Regarding her breast mass and tenderness, there will be a free breast clinic on January 31 at [address] [facility]. Call [phone] and speak with Suellen Aceves. She will be able to get you scheduled and set up for this. If they determine a mammogram is indicated after your exam, they will help facilitate getting this set up for you. Follow-up sooner if you develop any breast redness, high fevers, swelling, any further concerns. Prescriptions: Naproxen [Naprosyn] 500 mg PO BID #20 tablet Forms: Elevated Blood Pressure, Smoking Cessation Education Referrals: [facility] [Provider Group] - Follow up as needed
--- NOTE | 2019-01-13 10:57 | RADIOLOGY REPORT (SQ) ---
EXAM DESCRIPTION: KNEE LEFT 3 VIEWS COMPLETED DATE/TIME: 01/13/2019 10:46 am REASON FOR STUDY: pain COMPARISON: None. NUMBER OF VIEWS: Three views. TECHNIQUE: AP, lateral, and sunrise patella radiographic images acquired of the left knee. LIMITATIONS: None. FINDINGS: MINERALIZATION: Normal. BONES: No acute fracture or dislocation. No worrisome bone lesions. JOINT: No effusion. SOFT TISSUES: No soft tissue swelling. No radio-opaque foreign body. OTHER: No other significant finding. IMPRESSION: No fracture or dislocation of the left knee. Joint spaces are well preserved. TECHNICAL DOCUMENTATION: JOB ID: [id number] [employer]- All Rights Reserved Reading location - IP/workstation name: [email or web address]
== END 2019-01-13 11:42 | disposition home or self-care (01) ==
LOC: ER 10:05
DX: N64.4 Mastodynia (principal); N64.52 Nipple discharge; M25.562 Pain in left knee; F17.200 Nicotine dependence, unspecified, uncomplicated
CPT/HCPCS: 99283

== ENCOUNTER 2019-07-19 18:52 | Emergency (ER) | payer SELFPAY ==
[2019-07-19 19:07] VITALS: BP 136/81
[2019-07-19] MEDS ORDERED: IBUPROFEN 800 MG TABLET PO ONE (19:44)
[2019-07-19] MEDS ORDERED: BENZONATATE 100 MG CAPSULE PO ONE (19:45)
--- NOTE | 2019-07-19 20:04 | ER Document Report ---
HPI - HPI Patient complains to provider of: Cough sore throat ear pain headache short of breath Time Seen by Provider: 07/19/19 19:33 Onset: Last week Onset/Duration: Persistent Pain Level: 5 Context: This 29-year-old female with history of COPD bronchitis seizures migraines and depression who presents emergency department with complaints of sore throat earache cough for the past 2 weeks and a headache. Patient reports she feels short of breath when she coughs. Patient is still smoking. Reports she was diagnosed with COPD last year. Denies fever vomiting diarrhea. Patient is speaking in a clear voice respiratory rate even unlabored Associated Symptoms: Nonproductive cough Exacerbated by: Denies Relieved by: Denies Similar symptoms previously: Yes Recently seen / treated by doctor: No - CONSTITUTIONAL Constitutional: DENIES: Fever, Chills - EENT EENT: REPORTS: Sore Throat - RESPIRATORY Respiratory: REPORTS: Coughing - REPRODUCTIVE Reproductive: DENIES: : Past Medical History - General Information source: Patient Last Menstrual Period: june - Social History Smoking Status: Current Every Day Smoker Cigarette use (# per day): Yes Frequency of alcohol use: None Drug Abuse: None Occupation: [employer] Lives with: Family Family History: Reviewed & Not Pertinent Patient has suicidal ideation: No Patient has homicidal ideation: No Pulmonary Medical History: Reports: Hx Bronchitis, Hx COPD Neurological Medical History: Reports: Hx Migraine, Hx Seizures Renal/ Medical History: Denies: Hx Peritoneal Dialysis Psychiatric Medical History: Reports: Hx Anxiety, Hx Depression Past Surgical History: Reports: Hx Section - x3, Hx Tubal Ligation - Immunizations Immunizations up to date: Yes Hx Diphtheria, Pertussis, Tetanus Vaccination: Yes Vertical Provider Document - CONSTITUTIONAL Agree With Documented VS: Yes Exam Limitations: No Limitations General Appearance: WD/WN, No Apparent Distress - nontoxic looking - INFECTION CONTROL TRAVEL OUTSIDE OF THE [place] IN LAST 30 DAYS: No - HEENT HEENT: Atraumatic, Normal ENT Exam, Normocephalic, PERRLA. negative: Conjuctival Injection, Pharyngeal Erythema, Tympanic Membrane Red - NECK Neck: Normal Inspection, Supple. negative: Lymphadenopathy-Left, Lymphadenopathy-Right - RESPIRATORY Respiratory: Breath Sounds Normal, No Respiratory Distress. negative: Wheezing - CARDIOVASCULAR Cardiovascular: Regular Rate, Regular Rhythm - GI/ABDOMEN Gastrointestinal: Abdomen Soft, Abdomen Non-Tender - MUSCULOSKELETAL/EXTREMETIES Musculoskeletal/Extremeties: MAEW, FROM - NEURO Level of Consciousness: Awake, Alert, Appropriate Motor/Sensory: No Motor Deficit - DERM Integumentary: Warm, Dry, No Rash Course - Re-evaluation Re-evalutation: 07/19/19 20:02 This 29-year-old female with history of COPD and bronchitis that still smokes presents to the emergency department with cough for the past 2 weeks along with sore throat ear pain and headache. Denies fever vomiting diarrhea. Patient speaking a clear voice no respiratory distress occasional cough noted. Respiratory rate even unlabored. Will do a chest x-ray. Will also ordered Motrin and Tessalon Perle for patient 07/19/19 20:37 Chest x-ray was negative. Patient was instructed on results. Instructed on the importance of quit smoking push fluids monitor temperature return to the emergency department for concerns. Respiratory rate was even unlabored no distress Chest X-Ray 07/19/19 19:45 IMPRESSION: 1. No acute cardiothoracic abnormality. Dictation of this chart was performed using voice recognition software; therefore, there may be some unintended grammatical errors. Upon discharge patient requested an inhaler. I agree this will help her cough, inhaler ordered - Vital Signs Vital signs: Temp Pulse Resp BP Pulse Ox 98.5 F 88 22 H 136/81 H 98 07/19/19 19:06 07/19/19 19:06 07/19/19 19:06 07/19/19 19:06 07/19/19 19:06 - Diagnostic Test Radiology reviewed: Image reviewed, Reports reviewed Discharge - Discharge Clinical Impression: Cough, Sore throat, Ear pain Condition: Stable Disposition: HOME, SELF-CARE Instructions: [facility], Sore Throat ([facility]), Tessalyadira Perles ([facility]) Additional Instructions: *You have been evaluated for cold symptoms today, cough,sore throat, ear pain, headache Your chest test ray was negative for pneumonia *Increase fluid intake as discussed *Take medication as prescribed for cough *Monitor your temperature, take Tylenol as indicated *Follow up with the [facility] within one week for recheck *quit smoking *Return to ED for worsening condition, changes, needs, difficulty breathing, concerns Monitor your blood pressure. Your blood pressure was elevated today. This may be because you were anxious, in pain or because you need medication. It is important to follow up with your primary care provider for full evaluation. Prescriptions: Benzonatate [Tessalon Perles 100 mg Capsule] 100 mg PO ASDIR PRN #20 capsule PRN Reason: Forms: Elevated Blood Pressure, Smoking Cessation Education, Return to Work Referrals: EH LOVING MD [Primary Care Provider] - Follow up as needed [facility] [Provider Group] - Follow up in 1 week
--- NOTE | 2019-07-19 20:37 | RADIOLOGY REPORT (SQ) ---
EXAM DESCRIPTION: RadLex: XR CHEST 2 VIEWS Views: 2 CLINICAL HISTORY: 29 years Female, cough COMPARISON: 10/19/2018 FINDINGS: The lungs are clear. No pneumothorax or significant pleural effusion. Cardiomediastinal silhouette is within normal limits. Bony structures are unremarkable for age. IMPRESSION: 1. No acute cardiothoracic abnormality.
[2019-07-19] MEDS ORDERED: ALBUTEROL SULFATE HFA (90 MCG/PUFF) 8 GM MDI (1 MDI/ER DISP) IH ONE (20:43)
== END 2019-07-19 20:51 | disposition home or self-care (01) ==
LOC: ER 18:52
DX: J02.9 Acute pharyngitis, unspecified (principal); R51 Headache; R05 Cough; R06.02 Shortness of breath; H92.09 Otalgia, unspecified ear; F17.210 Nicotine dependence, cigarettes, uncomplicated; Z98.51 Tubal ligation status; J44.9 Chronic obstructive pulmonary disease, unspecified
CPT/HCPCS: 99283; 71046; J3490

== ENCOUNTER 2019-09-23 18:04 | Emergency (ER) | payer SELFPAY ==
[2019-09-23] MEDS ORDERED: ONDANSETRON 4 MG TAB.RAPDIS PO ONE (18:41)
--- NOTE | 2019-09-23 18:43 | ER Document Report ---
ED Medical Screen (RME) - General Chief Complaint: Flu Symptoms Stated Complaint: FLU LIKE SYMPTOMS Time Seen by Provider: 09/23/19 18:39 Primary Care Provider: EH LOVING MD [Primary Care Provider] - Follow up as needed Mode of Arrival: Ambulatory Information source: Patient Notes: 29-year-old female with history of bronchitis and COPD presents emergency depart ment with complaints of cough vomiting not feeling well week for the past 2 days. Patient reports her daughter was just diagnosed with influenza yesterday. I have greeted and performed a rapid initial assessment of this patient. A comprehensive ED assessment and evaluation of the patient, analysis of test results and completion of the medical decision making process will be conducted by additional ED providers. TRAVEL OUTSIDE OF THE [place] IN LAST 30 DAYS: No - Related Data Allergies/Adverse Reactions: No Known Allergies Allergy (Verified 01/13/19 10:10) Past Medical History - Social History Chew tobacco use (# tins/day): No Frequency of alcohol use: None Drug Abuse: None Family history: Malignancy - BREAST CANCER IN GRANDMOTHER AND GREATGRANDMOTHER AND MOTHERS AUNT Pulmonary Medical History: Reports: Hx Bronchitis, Hx COPD Neurological Medical History: Reports: Hx Migraine, Hx Seizures Renal/ Medical History: Denies: Hx Peritoneal Dialysis Psychiatric Medical History: Reports: Hx Anxiety, Hx Depression Past Surgical History: Reports: Hx Section - x3, Hx Tubal Ligation - Immunizations Immunizations up to date: Yes Hx Diphtheria, Pertussis, Tetanus Vaccination: Yes Physical Exam - Vital signs Vitals: Temp Pulse Resp BP Pulse Ox 99.5 F 117 H 24 H 129/86 H 99 09/23/19 18:07 09/23/19 18:07 09/23/19 18:07 09/23/19 18:07 09/23/19 18:07 Course - Vital Signs Vital signs: Temp Pulse Resp BP Pulse Ox 99.5 F 117 H 24 H 129/86 H 99 09/23/19 18:07 09/23/19 18:07 09/23/19 18:07 09/23/19 18:07 09/23/19 18:07 Doctor's Discharge - Discharge Referrals: EH LOVING MD [Primary Care Provider] - Follow up as needed
--- NOTE | 2019-09-23 19:00 | RADIOLOGY REPORT (SQ) ---
EXAM DESCRIPTION: CHEST 2 VIEWS COMPLETED DATE/TIME: 09/23/2019 6:49 pm REASON FOR STUDY: cough COMPARISON: 07/19/2019 EXAM PARAMETERS: NUMBER OF VIEWS: two views TECHNIQUE: Digital Frontal and Lateral radiographic views of the chest acquired. RADIATION DOSE: NA LIMITATIONS: none FINDINGS: LUNGS AND PLEURA: No opacities, masses or pneumothorax. No pleural effusion. MEDIASTINUM AND HILAR STRUCTURES: No masses or contour abnormalities. HEART AND VASCULAR STRUCTURES: Heart normal size. No evidence for failure. BONES: No acute findings. HARDWARE: None in the chest. OTHER: No other significant finding. IMPRESSION: NO ACUTE RADIOGRAPHIC FINDING IN THE CHEST. TECHNICAL DOCUMENTATION: JOB ID: [id number] [email or web address]- All Rights Reserved Reading location - IP/workstation name: [email or web address]
[2019-09-23 19:44] LABS: ABSOLUTE EOSINOPHILS # (AUTO) 0.1 10^3/uL (0.0-0.6); ABSOLUTE LYMPHOCYTES (AUTO) 0.8 10^3/uL (0.5-4.7); ABSOLUTE MONOCYTES (AUTO) 0.7 10^3/uL (0.1-1.4); ABSOLUTE NEUT (AUTO) 4.2 10^3/uL (1.7-8.2); BASOPHILS % (AUTO) 0.3 % (0-2); EOSINOPHILS % (AUTO) 1.1 % (0-6); HEMATOCRIT 39.7 % (36.0-47.0); HEMOGLOBIN 13.7 g/dL (12.0-15.5); LYMPHOCYTES % (AUTO) 13.6 % (13-45); MEAN CORPUSCULAR HEMOGLOBIN 31.5 pg (27.0-33.4); MEAN CORPUSCULAR HGB CONC 34.6 g/dL (32.0-36.0); MEAN CORPUSCULAR VOLUME 91 fl (80-97); MONOCYTES % (AUTO) 11.3 % (3-13); PLATELET COUNT 327 10^3/uL (150-450); RED BLOOD COUNT 4.36 10^6/uL (3.72-5.28); RED CELL DISTRIBUTION WIDTH 13.1 % (11.5-14.0); SEGMENTED NEUTROPHILS % (AUTO) 73.7 % (42-78); TOTAL CELLS COUNTED % (AUTO) 100 %; WHITE BLOOD COUNT 5.8 10^3/uL (4.0-10.5)
[2019-09-23 19:50] LABS: APPEARANCE,URINE CLEAR; BILIRUBIN,URINE NEGATIVE (NEGATIVE); COLOR,URINE STRAW; GLUCOSE, URINE NEGATIVE (NEGATIVE); KETONES,URINE NEGATIVE (NEGATIVE); LEUKOCYTE ESTERASE,URINE NEGATIVE (NEGATIVE); NITRITE,URINE NEGATIVE (NEGATIVE); PROTEIN,URINE NEGATIVE (NEGATIVE); URINE SPECIFIC GRAVITY 1.005; UROBILINOGEN,URINE NEGATIVE mg/dL (<2.0)
[2019-09-23 20:00] LABS: A TYPE INFLUENZA AG NEGATIVE (NEGATIVE); B INFLUENZA AG NEGATIVE (NEGATIVE)
[2019-09-23 20:03] LABS: ALBUMIN 4.1 g/dL (3.5-5.0); ALKALINE PHOSPHATASE 61 U/L (38-126); ANION GAP 8 (5-19); ASPARTATE AMINO TRANSFERASE 22 U/L (14-36); BILIRUBIN,DIRECT 0.2 mg/dL (0.0-0.4); BILIRUBIN,TOTAL 0.2 mg/dL (0.2-1.3); BLOOD UREA NITROGEN 8 mg/dL (7-20); CALCIUM 9.6 mg/dL (8.4-10.2); CARBON DIOXIDE 29 mmol/L (22-30); CHLORIDE 102 mmol/L (98-107); GLUCOSE 84 mg/dL (75-110); POTASSIUM 4.5 mmol/L (3.6-5.0)
[2019-09-23] MEDS ORDERED: IPRATROPIUM/ALBUTEROL 0.5-2.5 MG/3 ML AMPUL NEB ONE (20:35)
[2019-09-23] MEDS ORDERED: PREDNISONE 20 MG TABLET PO ONE (20:35)
[2019-09-23] MEDS ORDERED: LIDOCAINE 1% INJ-PF (10 MG/ML) 30 ML SDV NEB ONE (20:36)
--- NOTE | 2019-09-23 20:41 | ER Document Report ---
ED Flu Like - General Chief Complaint: Flu Symptoms Stated Complaint: FLU LIKE SYMPTOMS Time Seen by Provider: 09/23/19 18:39 Primary Care Provider: EH LOVING MD [ACTIVE STAFF] - Follow up as needed Mode of Arrival: Ambulatory Notes: Patient is a 29-year-old female that comes emergency department for chief complaint of cough, congestion, and she states she has coughed so hard she vomited on a couple of occasions. She denies diarrhea, abdominal pain, chest pain, and she has not had any recorded fevers. Her daughter was diagnosed with influenza B yesterday. Patient has not had the flu vaccine. Patient smokes, states he has had bronchitis frequently and told "I probably have COPD". She also has had a tubal ligation and has a history of migraines, denies recreational drugs, denies history otherwise. She does not have home inhalers. TRAVEL OUTSIDE OF THE [place] IN LAST 30 DAYS: No - Related Data Allergies/Adverse Reactions: No Known Allergies Allergy (Verified 01/13/19 10:10) Past Medical History - General Information source: Patient - Social History Smoking Status: Current Every Day Smoker Chew tobacco use (# tins/day): No Frequency of alcohol use: None Drug Abuse: None Lives with: Family Family History: Reviewed & Not Pertinent Patient has suicidal ideation: No Patient has homicidal ideation: No Pulmonary Medical History: Reports: Hx Bronchitis, Hx COPD Neurological Medical History: Reports: Hx Migraine, Hx Seizures Renal/ Medical History: Denies: Hx Peritoneal Dialysis Psychiatric Medical History: Reports: Hx Anxiety, Hx Depression Past Surgical History: Reports: Hx Section - x3, Hx Tubal Ligation - Immunizations Immunizations up to date: Yes Hx Diphtheria, Pertussis, Tetanus Vaccination: Yes Review of Systems - Review of Systems Constitutional: No symptoms reported EENT: See HPI Cardiovascular: No symptoms reported Respiratory: See HPI Gastrointestinal: No symptoms reported Genitourinary: No symptoms reported Female Genitourinary: No symptoms reported Musculoskeletal: No symptoms reported Skin: No symptoms reported Hematologic/Lymphatic: No symptoms reported Neurological/Psychological: No symptoms reported Physical Exam - Vital signs Vitals: Temp Pulse Resp BP Pulse Ox 99.5 F 117 H 24 H 129/86 H 99 09/23/19 18:07 09/23/19 18:07 09/23/19 18:07 09/23/19 18:07 09/23/19 18:07 - Notes Notes: GENERAL: Alert, interacts well. No acute distress. HEAD: Normocephalic, atraumatic. EYES: Pupils equal, round, and reactive to light. Extraocular movements intact. ENT: Oral mucosa moist, tongue midline. Oropharynx unremarkable. Airway patent. Sinus congestion but nontender sinuses, no nasal septal hematoma, TM's intact. NECK: Full range of motion. Supple. Trachea midline. LUNGS: Clear to auscultation bilaterally, no wheezes, rales, or rhonchi. No res piratory distress. HEART: Borderline tachycardic, normal rhythm, no murmur ABDOMEN: Soft, non-tender. Non-distended. EXTREMITIES: Moves all 4 extremities spontaneously. No edema, normal radial and dorsalis pedis pulses bilaterally. No cyanosis. BACK: no cervical, thoracic, lumbar midline tenderness. No saddle anesthesia, normal distal neurovascular exam. Moves all extremities in full range of motion. NEUROLOGICAL: Alert and oriented x3. Normal speech. Cranial nerves II through XII grossly intact. PSYCH: Normal affect, normal mood. SKIN: Warm, dry, normal turgor. No rashes or lesions noted. Course - Re-evaluation Re-evalutation: Patient is very talkative, she does have a congested cough, questionable faint expiratory wheezes with clear lung sounds otherwise. No respiratory distress. She is borderline tachycardic on my exam. She is actually quite well-appearing. She is not hypoxic. She does have some sinus congestion as well. CBC, chemistry, influenza, chest x-ray all unremarkable and negative. Regnancy test negative. Discussed with patient. She has been given steroids, duo nebs, she is requesting albuterol, treatment for the flu, and discharge. She states she is impatient and would like to be discharged now. She remains very well- appearing but she does have borderline tachycardia after the neb. Based on her presentation I do have a low suspicion of concerning intrathoracic etiology, appears to be bronchitis, tobacco abuse, and she will be treated with steroids and albuterol. She will be given prophylaxis for influenza as well after discussion. Discussed expectations, follow-up, return precautions. Patient states appreciation and agreement with plan. - Vital Signs Vital signs: Temp Pulse Resp BP Pulse Ox 99.7 F 118 H 20 124/82 100 09/23/19 23:47 09/23/19 23:47 09/23/19 23:47 09/23/19 23:47 09/23/19 23:47 - Laboratory Result Diagrams: 09/23/19 19:25 09/23/19 19:25 Laboratory results interpreted by me: 09/23/19 19:25 Urine Blood SMALL H Discharge - Discharge Clinical Impression: Cough, Exposure to influenza, Tobacco abuse Upper respiratory infection Qualifiers: URI type: unspecified URI Qualified Code(s): J06.9 - Acute upper respiratory infection, unspecified Condition: Stable Disposition: HOME, SELF-CARE Additional Instructions: Your work-up shows negative influenza, chest x-ray is clear, no concerning fi ndings are noted on your work-up otherwise. Your evaluation is most consistent with a viral upper respiratory infection with bronchitis. Take steroids as prescribed, use albuterol as prescribed if needed, take Tamiflu prophylaxis as discussed because of exposure to influenza. Drink plenty of fluids and rest. Take [id number] medications additionally if desired. Follow-up with primary care for additional management. Stop smoking. Return if you worsen including spiking fevers, difficulty breathing, or any other concerning or worsening symptoms. Prescriptions: Prednisone [Deltasone 20 mg Tablet] 3 tab PO DAILY 5 Days #15 tablet Albuterol Sulfate [Proair HFA Inhalation Aerosol 8.5 gm MDI] 2 puff IH Q4H PRN #1 mdi PRN Reason: Oseltamivir Phosphate [Tamiflu 75 mg Capsule] 75 mg PO DAILY 5 Days #5 capsule Forms: Smoking Cessation Education, Return to Work Referrals: EH LOVING MD [ACTIVE STAFF] - Follow up as needed
[2019-09-23] MEDS ORDERED: OSELTAMIVIR PHOSPHATE 75 MG CAPSULE PO ONE (21:57)
[2019-09-23] MEDS ORDERED: ALBUTEROL SULFATE HFA (90 MCG/PUFF) 8 GM MDI (1 MDI/ER DISP) IH ONE (22:27)
[2019-09-23 23:48] VITALS: BP 124/82
== END 2019-09-23 23:47 | disposition home or self-care (01) ==
LOC: ER 18:04
DX: J06.9 Acute upper respiratory infection, unspecified (principal); R05 Cough; R11.10 Vomiting, unspecified; R09.81 Nasal congestion; F17.200 Nicotine dependence, unspecified, uncomplicated; Z20.828 Contact with and (suspected) exposure to other viral communicable diseases
CPT/HCPCS: 94640; 99283; 36415; 85025; 81025; 80053; 81001; 87804; 71046; S0119; J3490 ×2; J7512; J7620

== ENCOUNTER 2019-09-26 10:17 | Emergency (ER) | payer SELFPAY ==
--- NOTE | 2019-09-26 11:23 | ER Document Report ---
HPI - HPI Time Seen by Provider: 09/26/19 11:12 Pain Level: Denies Notes: Patient is a 29-year-old female with history of migraines who presents complaining of continued harsh dry cough and soreness in her chest only when she coughs since being diagnosed with bronchitis and the flu over the past 4 days. Patient states that her other child just tested positive for the flu yesterday. She is otherwise able to eat and drink without difficulty. She is urinating normally. Denies drug allergies. Denies any headache, fever, neck pain, sore throat, palpitations, syncope, shortness of breath, wheeze, dyspnea, abdominal pain, nausea/vomiting/diarrhea, urinary retention, dysuria, hematuria, or rash. Denies any prolonged immobilization, distance travel, recent surgery/trauma, personal cancer history, hormone use, or previous DVT/PE. - ROS Systems Reviewed and Negative: Yes All other systems reviewed and negative - EENT EENT: DENIES: Sore Throat, Ear Pain, Eye problems - CARDIOVASCULAR Cardiovascular: DENIES: Chest pain - RESPIRATORY Respiratory: REPORTS: Trouble Breathing, Coughing - GASTROINTESTINAL Gastrointestinal: DENIES: Abdominal Pain, Black / Bloody Stools - REPRODUCTIVE Reproductive: DENIES: : Past Medical History - Social History Smoking Status: Current Every Day Smoker Chew tobacco use (# tins/day): No Frequency of alcohol use: Rare Drug Abuse: None Family History: Reviewed & Not Pertinent Patient has suicidal ideation: No Patient has homicidal ideation: No Pulmonary Medical History: Reports: Hx Bronchitis, Hx COPD Neurological Medical History: Reports: Hx Migraine, Hx Seizures Renal/ Medical History: Denies: Hx Peritoneal Dialysis Psychiatric Medical History: Reports: Hx Anxiety, Hx Depression Past Surgical History: Reports: Hx Section - x3, Hx Tubal Ligation - Immunizations Immunizations up to date: Yes Hx Diphtheria, Pertussis, Tetanus Vaccination: Yes Vertical Provider Document - CONSTITUTIONAL Agree With Documented VS: Yes Notes: PHYSICAL EXAMINATION: GENERAL: Well-appearing, well-nourished and in no acute distress. A&Ox4. Answers questions appropriately. Moves comfortably w/o notable distress HEAD: Atraumatic, normocephalic. EYES: Pupils equal round and reactive to light, extraocular movements intact, sclera anicteric, conjunctiva are normal. ENT: EAC clear b/l. TM's intact b/l without erythema, fluid, or perforation. Nares patent and with clear discharge. oropharynx no erythema without exudates. No tonsilar hypertrophy without erythema or exudate. No palatine shift. Uvula midline. No tongue protrusion. No drooling, hoarseness, or airway compromise. Moist mucous membranes. No sinus tenderness. NECK: Normal range of motion, supple without lymphadenopathy. No rigidity/meningismus. Chest: + reproducible tenderness to palp and ROM mid and b/l sternal area. LUNGS: Breath sounds clear to auscultation bilaterally and equal. No wheezes rales or rhonchi. No retractions HEART: Regular rate and rhythm without murmurs, rubs, gallops. NEUROLOGICAL: Normal speech, normal gait. PSYCH: Normal mood, normal affect. SKIN: Warm, Dry, normal turgor, no rashes or lesions noted. - INFECTION CONTROL TRAVEL OUTSIDE OF THE [place] IN LAST 30 DAYS: No Course - Re-evaluation Re-evalutation: 09/26/19 Patient is an afebrile, well-hydrated, 29-year-old female who presents to the ED with acute URI, suspect influenza, and chest wall pain that is reproducible by palpation and ROM. Vitals are acceptable. PE is otherwise unremarkable. She does have a dry harsh cough that was noted. CXR unremarkable. No other labs or imaging warranted at this time based on H&P. Patient has no significant cardiopulmonary or immunocompromised medical conditions. Patient's lungs are clear to auscultation bilaterally without tachycardia, hypoxia, or tachypnea. Patient is tolerating p.o. without any difficulties. Pt does not have any ARECHIGA, SOB, or CP when she is not coughing. PERC negative. Low suspicion for any meningitis, sepsis, peritonsillar/pharyngeal abscess, respiratory compromise, severe dehydration, pneumonia, ACS, PE, Pneumo, dissection, or other emergent systemic condition at this time. Patient is aware this condition can change fro m initial presentation and she needs to monitor symptoms closely. Conservative measures otherwise for symptoms. Recheck with your PCM in 3-5 days. Return to the ED with any worsening/concerning symptoms otherwise as reviewed in discharge. Patient is in agreement. - Vital Signs Vital signs: Temp Pulse Resp BP Pulse Ox 98.3 F 95 30 H 130/85 H 97 09/26/19 10:33 09/26/19 10:33 09/26/19 10:33 09/26/19 10:33 09/26/19 10:33 Discharge - Discharge Clinical Impression: Acute URI Condition: Stable Disposition: HOME, SELF-CARE Instructions: Upper Respiratory Illness ([facility]) Additional Instructions: Maintain adequate fluid intake tylenol/ibuprofen as needed alternating every 3 hours for fever/body ache over the counter cold medication as needed for symptoms Humidified air may help Wash your hands regularly Wear a mask when coughing F/u: with your PCM in 3-5 days for a recheck Return to the ED with any fever, altered mental status/behavior, chest pain, palpitations, syncope, headache, neck pain/stiffness, shortness of breath, chest pains, wheezing, drooling, trouble swallowing/breathing, abdominal pain, n/v/d, rash, or worsening/concerning symptoms otherwise. Prescriptions: Codeine Phosphate/Guaifenesin [Cheratussin Ac Syrup] 10 ml PO QID #200 ml Forms: Elevated Blood Pressure, Smoking Cessation Education Referrals: [facility] [Provider Group] - Follow up as needed
--- NOTE | 2019-09-26 11:59 | RADIOLOGY REPORT (SQ) ---
EXAM DESCRIPTION: CHEST 2 VIEWS COMPLETED DATE/TIME: 09/26/2019 11:48 am REASON FOR STUDY: cough COMPARISON: 09/23/2019 TECHNIQUE: Frontal and lateral radiographic views of the chest acquired. NUMBER OF VIEWS: Two view. LIMITATIONS: None. FINDINGS: LUNGS AND PLEURA: No opacities, masses or pneumothorax. No pleural effusion. MEDIASTINUM AND HILAR STRUCTURES: No masses or contour abnormalities. HEART AND VASCULAR STRUCTURES: Heart normal size. No evidence for failure. BONES: No acute findings. HARDWARE: None in the chest. OTHER: No other significant finding. IMPRESSION: NO SIGNIFICANT RADIOGRAPHIC FINDING IN THE CHEST. TECHNICAL DOCUMENTATION: JOB ID: [id number] [employer]- All Rights Reserved Reading location - IP/workstation name: [email or web address]
[2019-09-26 12:32] VITALS: BP 107/68
== END 2019-09-26 12:19 | disposition home or self-care (01) ==
LOC: ER 10:17
DX: J06.9 Acute upper respiratory infection, unspecified (principal); R05 Cough; R07.9 Chest pain, unspecified; F17.200 Nicotine dependence, unspecified, uncomplicated; J44.9 Chronic obstructive pulmonary disease, unspecified
CPT/HCPCS: 71046; 99283

== ENCOUNTER → 2019-11-27 | Outpatient (CLI) | payer OTHER ==
--- NOTE | 2019-11-27 09:50 | RADIOLOGY REPORT (SQ) ---
EXAM DESCRIPTION: CT FACIAL AREA WITHOUT COMPLETED DATE/TIME: 11/27/2019 8:46 am REASON FOR STUDY: J32.9 CHRONIC SINUSITIS, UNSPECIFIED J32.9 CHRONIC SINUSITIS, UNSPECIFIED COMPARISON: None. TECHNIQUE: Noncontrasted images through the facial bones and orbits windowed for bone and soft tissu e. Additional coronal and sagittal reconstructed images reviewed. All images stored on PACS. All CT scanners at this facility use dose modulation, iterative reconstruction, and/or weight based d osing when appropriate to reduce radiation dose to as low as reasonably achievable (ALARA). [facility]: Dose Right [facility]: CareDose [facility]: Dose Right [facility]: Teradose 4D [facility]: CMOSIS nv RADIATION DOSE: mGy. LIMITATIONS: None. FINDINGS: FACIAL BONES: No fracture or bone lesion. ORBITS: Intact. No fracture. Symmetric intact globes and retroorbital soft tissues. PARANASAL SINUSES: Clear. No significant mucosal thickening, mass or fluid. No nasal polyps. Maxill jacob sinus outlets are patent. SOFT TISSUES: There are persistent radiodensities within the left pre maxillary subcutaneous tissues compatible foreign bodies, largest measuring 2.7 mm. Radiodensities are represented on axial image 6 , 13 -18. Decreased radiodensities from prior exam. INFERIOR BRAIN: Limited view. No acute findings. OTHER: Nasal and lingual piercing present. IMPRESSION: 1. No evidence of mucosal thickening to suggest sinus disease. 2. Persistent radiodensities within the left pre maxillary subcutaneous tissues compatible with fore ign bodies, decreased from prior and as detailed above. TECHNICAL DOCUMENTATION: JOB ID: [id number] Quality ID # [id number]: Final reports with documentation of one or more dose reduction techniques (e.g., Au tomated exposure control, adjustment of the mA and/or kV according to patient size, use of iterative reconstruction technique) 2010 [employer]- All Rights Reserved Reading location - IP/workstation name: [email or web address]
== END ==
LOC: RAD 08:29
PROVIDERS: ATTEND Nurse Practitioner Primary Care
DX: J32.9 Chronic sinusitis, unspecified (principal)
CPT/HCPCS: 70486

== ENCOUNTER → 2019-12-31 | Outpatient (CLI) | payer OTHER ==
--- NOTE | 2019-12-31 08:45 | RADIOLOGY REPORT (SQ) ---
EXAM DESCRIPTION: LUMBAR SPINE 2 VIEWS IMAGES COMPLETED DATE/TIME: 12/31/2019 8:18 am REASON FOR STUDY: LOW BACK PAIN M54.5 LOW BACK PAIN COMPARISON: None. NUMBER OF VIEWS: Two views. TECHNIQUE: AP and lateral radiographic images acquired of the lumbar spine. LIMITATIONS: None. FINDINGS: MINERALIZATION: Normal. SEGMENTATION: Long ribs/ short transverse processes at the L1 level ALIGNMENT: Normal. VERTEBRAE: Maintained height. No fracture or worrisome bone lesion. DISCS: Preserved height. No significant osteophytes or end plate irregularity. POSTERIOR ELEMENTS: Pedicles and facets are intact. No pars defect or posterior arch defects. HARDWARE: None in the spine. PARASPINAL SOFT TISSUES: Normal. PELVIS: Intact as visualized. No fractures or worrisome bone lesions. SI joints intact. OTHER: No other significant finding. IMPRESSION: NORMAL 2 VIEW LUMBAR SPINE. TECHNICAL DOCUMENTATION: JOB ID: [id number] 2010 [email or web address]- All Rights Reserved Reading location - IP/workstation name: [email or web address]
== END ==
LOC: OD 08:07
PROVIDERS: ATTEND Nurse Practitioner Primary Care
DX: M54.5 Low back pain (principal)
CPT/HCPCS: 72100

== ENCOUNTER → 2020-01-26 | Outpatient (CLI) | payer OTHER ==
--- NOTE | 2020-01-26 09:58 | RADIOLOGY REPORT (SQ) ---
EXAM DESCRIPTION: CHEST PA/LATERAL IMAGES COMPLETED DATE/TIME: 01/26/2020 9:32 am REASON FOR STUDY: ASTHMA COMPARISON: 09/26/2019 EXAM PARAMETERS: NUMBER OF VIEWS: two views TECHNIQUE: Digital Frontal and Lateral radiographic views of the chest acquired. RADIATION DOSE: NA LIMITATIONS: none FINDINGS: LUNGS AND PLEURA: No opacities, masses or pneumothorax. No pleural effusion. MEDIASTINUM AND HILAR STRUCTURES: No masses or contour abnormalities. HEART AND VASCULAR STRUCTURES: Heart normal size. No evidence for failure. BONES: No acute findings. HARDWARE: None in the chest. OTHER: No other significant finding. IMPRESSION: NO SIGNIFICANT RADIOGRAPHIC FINDING IN THE CHEST. TECHNICAL DOCUMENTATION: JOB ID: [id number] 2010 [employer]- All Rights Reserved Reading location - IP/workstation name: [email or web address]
== END ==
LOC: RAD 09:16
PROVIDERS: ATTEND Nurse Practitioner Primary Care
DX: J45.909 Unspecified asthma, uncomplicated (principal)
CPT/HCPCS: 71046

== ENCOUNTER 2020-03-03 08:51 | Emergency (ER) | payer OTHER ==
--- NOTE | 2020-03-03 10:54 | RADIOLOGY REPORT (SQ) ---
EXAM DESCRIPTION: KNEE LEFT 4 VIEW IMAGES COMPLETED DATE/TIME: 03/03/2020 10:26 am REASON FOR STUDY: Fell on knee, pain and swelling COMPARISON: 01/13/2019 NUMBER OF VIEWS: Four views. TECHNIQUE: AP, lateral, and both oblique radiographic images acquired of the left knee. LIMITATIONS: None. FINDINGS: MINERALIZATION: Normal. BONES: No acute fracture or dislocation. No worrisome bone lesions. JOINT: No effusion. SOFT TISSUES: No soft tissue swelling. No radio-opaque foreign body. OTHER: No other significant finding. IMPRESSION: NEGATIVE STUDY OF THE LEFT KNEE. NO RADIOGRAPHIC EVIDENCE OF ACUTE INJURY. TECHNICAL DOCUMENTATION: JOB ID: [id number] 2010 [employer]- All Rights Reserved Reading location - IP/workstation name: [email or web address]
--- NOTE | 2020-03-03 11:10 | ER Document Report ---
Entered by UMESH PIERCE SCRIBE 03/03/20 1008 Acting as scribe for:HAVEN JEFFERSON MD ED General - General Chief Complaint: Knee Pain Stated Complaint: LEFT KNEE PAIN, SWELLING Time Seen by Provider: 03/03/20 09:59 Primary Care Provider: CARLOS GILLESPIE FNP-C [Primary Care Provider] - Follow up as needed Information source: Patient Notes: This 30-year-old female presents to the emergency department complaining of left knee pain and swelling that began after a slip outside two days ago. Patient said that she was playing with her children when she slipped and fell onto her left knee. Patient said that she "heard a pop" when she fell. Patient states that she was seen by physician in September and was told she strained her ACL. Patient states that she "did not let her knee heal" and that she "still has problems with it". Patient states that her knee hurts worse when walking and sleeping. Patient states she was seen in [facility] emergency room in September of this year for further knee injury, and received Lenard wrap and crutches. I reviewed the records here and she was not seen here. When I talked to her to see if it was another facility, she was certain it was here, but may have been earlier than September. I went back and reviewed all of her ER visits for the last few years, and I reviewed all x-rays and scans done in the last few years. She had never had a knee x-ray done here before today and I could not find any visits that were related to a lower extremity injury. TRAVEL OUTSIDE OF THE [place] IN LAST 30 DAYS: No - Related Data Allergies/Adverse Reactions: No Known Allergies Allergy (Verified 09/26/19 11:12) Home Medications: Vitamin D, Tizanidine, Diclofenac, Divalproex, Symbicort, Ventolin Past Medical History - General Information source: Patient - Social History Smoking Status: Current Every Day Smoker Cigarette use (# per day): Yes - 1 pack every 4 days Chew tobacco use (# tins/day): No Frequency of alcohol use: None Family History: Reviewed & Not Pertinent Patient has homicidal ideation: No Pulmonary Medical History: Reports: Hx Bronchitis, Hx COPD Neurological Medical History: Reports: Hx Migraine, Hx Seizures Psychiatric Medical History: Reports: Hx Anxiety, Hx Depression Past Surgical History: Reports: Hx Section - x3, Hx Tubal Ligation - Immunizations Immunizations up to date: Yes Hx Diphtheria, Pertussis, Tetanus Vaccination: Yes Review of Systems - Review of Systems Constitutional: See HPI. denies: Fever EENT: No symptoms reported Cardiovascular: No symptoms reported Respiratory: No symptoms reported Gastrointestinal: No symptoms reported Genitourinary: No symptoms reported Female Genitourinary: No symptoms reported Musculoskeletal: See HPI, Other - Left knee pain and swelling Skin: No symptoms reported Hematologic/Lymphatic: No symptoms reported Neurological/Psychological: No symptoms reported -: Yes All other systems reviewed and negative Physical Exam - Vital signs Vitals: Temp Pulse Resp BP Pulse Ox 98.2 F 88 20 132/80 H 100 03/03/20 09:04 03/03/20 09:04 03/03/20 09:04 03/03/20 09:04 03/03/20 09:04 - Notes Notes: Physical Exam: General: Alert, appears well. HEENT: Normocephalic. Atraumatic. PERRL. Extraocular movements intact. Oropharynx clear. Neck: Supple. Non-tender. Respiratory: No respiratory distress. Clear and equal breath sounds bilaterally. Cardiovascular: Regular rate and rhythm. Abdominal: Normal Inspection. Non-tender. No distension. Normal Bowel Sounds. Back: No gross abnormalities. Extremities: Moves all four extremities. Upper extremities: Normal inspection. Normal ROM. Lower extremities:No edema. Limited ROM of left knee secondary to pain. Tenderness and swelling over the patella on top. Left knee tender on the medial collateral ligament. Tenderness to palpation on the anteromedial aspect and anterolateral aspect of knee. The superior of patella is puffy and swollen bilaterally but left is more pronounced. Neurological: Normal cognition. AAOx4. Normal speech. Psychological: Normal affect. Normal Mood. Skin: Warm. Dry. Normal color. Course - Vital Signs Vital signs: Temp Pulse Resp BP Pulse Ox 98.2 F 88 20 132/80 H 100 03/03/20 09:27 03/03/20 09:04 03/03/20 09:04 03/03/20 09:04 03/03/20 09:04 - Diagnostic Test Radiology reviewed: Image reviewed, Reports reviewed - Left knee x-ray -Negative study of the left knee Discharge - Discharge Clinical Impression: Contusion of left knee Qualifiers: Encounter type: initial encounter Qualified Code(s): S80.02XA - Contusion of left knee, initial encounter Condition: Stable Disposition: HOME, SELF-CARE Instructions: Knee Immobilizing Splint ([facility]) Additional Instructions: Your evaluation today suggests a contusion and sprain of your knee. Get a knee brace that fits well and provide support to your knee but does allow it to bend a little bit. Use the knee brace all the time you are up walking for the next 1 to 2 weeks, then after that use it whenever you are engaged in any activities. Elevate your leg and ice pack to the knee for the next few days. Take Tylenol and ibuprofen for pain as needed. Follow-up with a local medical doctor if not improving over the next 1 to 2 weeks. Referrals: CARLOS GILLESPIE, BASS FISHER-C [Primary Care Provider] - Follow up as needed I personally performed the services described in the documentation, reviewed and edited the documentation which was dictated to the scribe in my presence, and it accurately records my words and actions.
[2020-03-03 12:02] VITALS: BP 138/72
== END 2020-03-03 11:59 | disposition home or self-care (01) ==
LOC: ER 08:51
DX: S80.02XA Contusion of left knee, initial encounter (principal); M25.562 Pain in left knee; M25.462 Effusion, left knee; W01.0XXA Fall on same level from slipping, tripping and stumbling without subsequent striking against object, initial encounter; F17.210 Nicotine dependence, cigarettes, uncomplicated; Z98.51 Tubal ligation status
CPT/HCPCS: 99283